=== PATIENT | female | born 1940 | race Caucasian/White ===

== ENCOUNTER 2016-07-24 04:13 | Inpatient (IN) | payer MEDICARE, OTHER ==
--- NOTE | ~2016-07-24 | CO ---
Unit #: [id number] #: [id number] Patient: BAR BRISENO [id number] [address] [place], [place] [address] [id number] I MR#: [id number] NAME: BAR BRISENO. ROOM: 577 Age: 75 Sex: F Admission Date: 07/24/2016 : 1940 Attending Physician: Josiane Loja M.D. Primary Care Physician: Te Clemente D.O. CONSULTATION REPORT HISTORY OF PRESENT ILLNESS This is a 75-year-old female, who follows with Dr. Meyer and presented after developing shortness of breath and abdominal distention when she woke up about 1:00 a.m. She felt like she could not breathe, so she went to sit in a chair, which did not really relieve her shortness of breath. She did say it was associated with nausea, but denied any chest pain. She did feel her heart racing. PAST MEDICAL HISTORY Systolic CHF; diabetes; hypertension; paroxysmal AFib; chronic kidney disease, on hemodialysis, last dialysis on Wednesday; recent right hemicolectomy. Apparently, on record review, had been on chronic anticoagulation with Coumadin prior to her hemicolectomy. Past cardiac testing includes a 2D echo in 02/2016, which showed an LVEF of 50% to 55% with LVH, zcbk-pq-rybpqkjf MR and TR, a small pericardial effusion versus fat tissue. The patient also had a cardiac catheterization in 02/2012 with bcbj-nq-vykywemh TR. EF at that time was 20% to 30%. She had a 70% to 75% stenosis of the second diagonal branch at the ostium. Past medical history also of hyperlipidemia. PAST SURGICAL HISTORY Cervical and lower back surgery, laparoscopic cholecystectomy, bilateral total knee replacements, and cataracts bilaterally. HOME MEDICATIONS Lactulose 20 g daily p.r.n. for constipation, Dulcolax 10 mg daily p.r.n. for constipation, soap enema daily p.r.n. for constipation, amiodarone 200 mg daily, Paxil 60 mg daily, lorazepam 1 mg b.i.d. p.r.n. for anxiety, Coreg 3.125 b.i.d., Timoptic 0.25% ophthalmic drop, Colace 100 mg b.i.d., Lasix 40 mg b.i.d., Lipitor 10 mg daily, latanoprost eyedrops 1 droplet b.i.d., Nephrocaps 1 capsule daily, vitamin D2 of 50,000 units weekly, Renvela 800 mg t.i.d. with meals, hydrocodone 7.5/325 tablet every 4 hours as needed for pain, Lidoderm topical daily, and Coumadin 3 mg daily. ALLERGIES Include penicillin, sulfa, acetaminophen, dextromethorphan and promethazine, IV contrast dye, phenothiazine. FAMILY HISTORY Includes hypertension and coronary artery disease. SOCIAL HISTORY Lives with her spouse and daughter. Reformed smoker. Quit at the age of Unit #: [id number] #: [id number] Patient: BAR BRISENO 40. No alcohol or illicit drug use. REVIEW OF SYSTEMS Positive for shortness of breath, abdominal distention, and positive for nausea. Also reported some racing heart rate. No chest pain. PHYSICAL EXAMINATION VITAL SIGNS: Temperature 98.5, heart rate 81, respirations 16, blood pressure 152/72, 99% on supplemental oxygen. GENERAL: She is seen in the ER, well developed, well nourished, obese female, who is alert and oriented x3. HEENT: Head is normocephalic, atraumatic. Eyes, pupils are equal and reactive to light and accommodation. Extraocular movements are intact. NECK: Supple with no lymphadenopathy. No JVD noted and no bruits. LUNGS: Have decreased breath sounds. Bilaterally, she has increased respiratory effort with use of accessory muscles for breathing. CARDIOVASCULAR: She has normal heart sounds with S1, S2 noted with S4 gallop. No murmurs appreciated. ABDOMEN: Round and obese, but soft and positive bowel sounds. No hepatojugular reflux noted. No hepatomegaly. EXTREMITIES: Trace edema with positive pedal pulses. DIAGNOSTIC STUDIES CARDIOVASCULAR STUDIES: Include an EKG, sinus rhythm with first-degree AV block with nonspecific ST and T-wave abnormalities and depression in leads V1 through V5. QTc prolonged at 495 milliseconds. IMAGING STUDIES: Chest x-ray, 07/24/2016, marked cardiomegaly, vascular congestion with new infiltrates to the mid lower lungs, which probably reflect pulmonary edema, small volume of right pleural fluid. No pneumothorax. Emphysema is noted. LABORATORY RESULTS: Include sodium 139, potassium 5.0, chloride 103, CO2 is 21, creatinine 5.4, BUN 31, glucose 314, phosphorus is 8.8, alkaline phosphatase is elevated at 102. BNP is greater than 4988. Troponin was 0.25. Lactic acid was 3.5 on admission and repeat was 1.7. INR is 1.7, PT is 18. Troponin on repeat was 0.14. WBC 14.9, hemoglobin 10.8, hematocrit 34.6, and platelet count 312. ASSESSMENT 1. Fluid overload related to chronic kidney disease. 2. Acute on chronic systolic congestive heart failure. 3. History of paroxysmal atrial fibrillation, now normal sinus rhythm. 4. Hypertension. 5. Diabetes. 6. Elevated troponin indeterminate, but possibly related to acute coronary syndrome or chronic kidney disease. 7. End-stage renal disease, on hemodialysis, Mondays, Wednesdays, and Fridays. 8. Cardiology plans to diurese per hemodialysis. Once her fluids status is more stable, we will plan to check an echo and do a right and left heart cath. We will trend her troponins and check a chest x-ray in the morning and hold her Coumadin today and tomorrow for possible right and left heart cath in the next 2 days. Dictated by... Sujata Wilkinson APRN for Manan Meyer M.D. Unit #: [id number] #: [id number] Patient: BAR BRISENO TAWNY/river TD: 07/24/2016 22:44 JOB #: [id number] CONSULTATION REPORT X X CONSULTATION REPORT
--- NOTE | ~2016-07-24 | EKG ---
PATIENT: BAR BRISENO UNIT #: [id number] Ventricular Rate: 94 BPM Atrial Rate: 94 BPM P-R Interval: 228 ms QRS Duration: 100 ms Q-T Interval: 396 ms QTC Calculation(Bezet): 495 ms P [place]: 110 degrees Calculated R [place]: 0 degrees Calculated T [place]: 78 degrees Diagnosis Line: Sinus rhythm with 1st degree A-V block Diagnosis Line: Nonspecific ST and T wave abnormality Diagnosis Line: Prolonged QT Diagnosis Line: Abnormal ECG Diagnosis Line: No previous ECGs available Diagnosis Line: Confirmed by LINDA KNIGHT MD ([id number]) on 07/24/2016 Diagnosis Line: 5:24:22 PM INTERPRETING MD: ANTONIA PELLETIER
--- NOTE | ~2016-07-24 | EKG ---
PATIENT: BAR BRISENO UNIT #: [id number] Ventricular Rate: 67 BPM Atrial Rate: 67 BPM P-R Interval: 202 ms QRS Duration: 98 ms Q-T Interval: 492 ms QTC Calculation(Bezet): 519 ms P [place]: 83 degrees Calculated R [place]: 16 degrees Calculated T [place]: 103 degrees Diagnosis Line: Normal sinus rhythm Diagnosis Line: Nonspecific T wave abnormality Diagnosis Line: Prolonged QT Diagnosis Line: Abnormal ECG Diagnosis Line: When compared with ECG of 24-JUL-2016 14:36, Diagnosis Line: Nonspecific T wave abnormality, improved in Diagnosis Line: Lateral leads Diagnosis Line: Confirmed by LINDA KNIGHT MD ([id number]) on 07/27/2016 Diagnosis Line: 7:09:55 AM INTERPRETING MD: ANTONIA PELLETIER
--- NOTE | ~2016-07-24 | CR72 ---
[facility] A Service of [facility] & [facility] RADIOLOGY TEXT RESULTS PATIENT: BAR BRISENO LOCATION: [place] [address] : [birth year] UNIT #: [id number] AGE: [address]: Josiane oLja MD SEX: F ORDER DR: [id number] [facility] [address] [place], [place] [address] [id number] I MR#: [id number] Acc #: [id number] NAME: BAR BRISENO. : 1940 SEX: F STUDY DATE/TIME: 07/24/2016 04:10 UNIT: CEDOF ROOM: 57176 STUDY DESCRIPTION: CR Chest Single View Portable Attending Physician: Josiane Loja M.D. Ordering Physician: Dipak Lewis D.O. Primary Care Physician: Te Clemente D.O. MEDICAL IMAGING REPORT This report is preliminary unless electronic signature is present EXAM Chest portable, 07/24 at 04:10 INDICATION Shortness of air for 2 weeks. History of hypertension and smoking. FINDINGS AP portable views of the chest are compared with 05/27/2016. Patient is status post cervical fusion. Bilateral upper extremity vascular stents are present. There is marked cardiomegaly. There is vascular congestion with new infiltrates in the exy-zs-vksqd lungs which probably reflect pulmonary edema. There is a small volume of right pleural fluid. No pneumothorax. IMPRESSION Emphysema and cardiomegaly. Interval development of presumed mild CHF. There is a small volume of right pleural fluid noted as well. Dictated by... Te Eisenberg Jr., M.D. THIS IS AN ELECTRONICALLY VERIFIED REPORT Te Eisenberg Jr., M.D. at 07/27/2016 7:20 AM KARISHMA/jose TD: 07/24/2016 08:31 JOB #: [id number] MEDICAL IMAGING REPORT COPY
--- NOTE | ~2016-07-24 | HP ---
Unit #: [id number] #: [id number] Patient: BAR BRISENO [id number] [address] [place], [place] [address] [id number] MR#: [id number] NAME: BAR BRISENO ROOM: [address]79 Age: 75 Sex: F Admission Date: 07/24/2016 : 1940 Attending Physician: Josiane Loja M.D. Primary Care Physician: Te Clemente D.O. HISTORY AND PHYSICAL CHIEF COMPLAINT Shortness of breath. HISTORY OF PRESENT ILLNESS This is a 75-year-old with a history of congestive heart failure and end stage renal disease on hemodialysis, admitted with the shortness of breath. According to her it started last night. She workup with shortness of breath. Last dialysis was on Wednesday. No cough. No fever. No chills. No chest pain. She received BiPAP in the ER, currently breathing better on 3 L of oxygen. No leg swelling. No abdominal pain. No nausea, vomiting, or diarrhea. PAST MEDICAL HISTORY 1. History of chronic systolic heart failure. 2. Paroxysmal atrial fibrillation on Coumadin. 3. History of ESBL UTI. 4. 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 5. Diabetes mellitus type 2, diet controlled. 6. End stage renal disease on hemodialysis Wednesday, Wednesday, and Wednesday. 7. Hypertension. 8. Hyperlipidemia. 9. Anemia of chronic disease. 10. Obesity. 11. History of tuberculosis requiring surgery. 12. B12 deficiency. 13. Degenerative joint disease. 14. Depression. 15. 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 16. History of glaucoma. 17. History of C-spine and lower spine surgery. 18. History of laparoscopic cholecystectomy. 19. History of exploratory laparotomy and right hemicolectomy in 04/2016. 20. Bilateral total knee replacement. 21. Cataract extraction bilaterally. ALLERGIES 1. Penicillin. 2. Phenothiazine. 3. Sulfa. 4. Acetaminophen. 5. Dextromethorphan. Unit #: [id number] #: [id number] Patient: SUZANNA,BAR B 6. Promethazine. 7. IV dye. CURRENT HOME MEDICATION Lactulose 20 g p.o. daily; Dulcolax 100 mg suppository daily; soap suds enema daily p.r.n.; Amiodarone 200 daily; Paxil 60 mg p.o. daily; lorazepam 1 mg p.o. b.i.d.; Coreg 3.125 p.o. b.i.d.; Timoptic eye drops daily; Colace 100 p.o. b.i.d.; Lasix 40 p.o. b.i.d.; latanoprost 1 drop b.i.d.; Lipitor 10 mg daily; Renvela 800 mg 3 times daily with meals; Nephrocaps 1 capsule daily; vitamin D 50,000 units p.o. weekly; hydrocodone 7.5 mg q.4 p.r.n. pain; Lidoderm patch 1 topically daily; Coumadin 3 mg daily. FAMILY HISTORY Positive for hypertension and coronary artery disease. SOCIAL HISTORY Lives with her . Remote history of smoking. Present currently denying smoking or alcohol. No drugs. REVIEW OF SYSTEMS No headache. No visual changes. No weakness, numbness or tingling. No skin rash. Reviewed 12 point system with her, which are negative except as in HPI. PHYSICAL EXAMINATION VITAL SIGNS: Temperature 98.2, pulse 120, respirations 32, blood pressure 104/90. GENERAL: 75-year-old lying on bed, on 3 L of oxygen, not in acute distress. Alert and oriented x3. Able to provide history. HEENT: Dry mucosa present. NECK: Supple. HEART: S1, S2 heard. Tachycardia present. No murmurs. LUNGS: Decreased breath sounds present. Occasional crackles at the basis present. ABDOMEN: Soft, obese, nontender. No hepatosplenomegaly. Bowel sounds are present. EXTREMITIES: Trace pedal edema present. NEUROLOGICAL: Moving all extremities. No focal neurological deficits. Alert and oriented x3. DIAGNOSTIC STUDIES LABORATORY DATA: ABG - pH 7.27, CO2 48, oxygen 113. Troponin is 0.05, INR 1.7, lactic acid 3.5. WBC 14.9, hemoglobin 10.8, platelets 312. Sodium 139, potassium 5.0, creatinine 5.4, CO2 21, glucose 314. BNP greater than 4,988. IMAGING STUDIES: Chest x-ray shows emphysema, interval development of mild CHF. ASSESSMENT AND PLAN 1. Acute hypoxic hypercapnic respiratory failure, most likely secondary to congestive heart failure. The patient was on BiPAP. Currently she is off BiPAP. Her ABG is 7.39, carbon dioxide 37, oxygen 109, so I am going to discontinue the BiPAP and continue the oxygen and monitor her in telemetry. 2. Sepsis, less likely: Even though her lactic acid is high, it is most likely from cardiac ischemia and end stage renal disease. Her x-ray Unit #: [id number] #: [id number] Patient: BAR BRISENO looks mostly congestion, rather than pneumonia. She did received repeat lactic acid and antibiotics x1. If pneumonia is differential, will continue the antibiotics. For now I am going to hold off on the antibiotics until her cultures. Sputum and blood cultures sent. 3. Acute on chronic systolic heart failure with fluid overload: Also form chronic kidney disease, continue with Lasix and hemodialysis. 4. Hypertension with hypertensive crisis, most likely secondary to chronic kidney disease. Continue with home medications and hemodialysis. 5. Elevated troponins: The patient is seen by cardiology. Rule out coronary artery disease. Also troponins can be secondary to chronic kidney disease. The patient does not have any chest pain. 6. End stage renal disease: Continue with hemodialysis. 7. Diabetes mellitus, type 2, diet controlled: I am going to continue the Accu-Cheks a.c. and h.s. and low dose sliding scale. 8. Recent tubulovillous adenoma with hemicolectomy: Her hemoglobin is stable, monitor. 9. Paroxysmal atrial fibrillation: The patient was on Coumadin, which has been on hold currently. She will get Lovenox as per Dr. Meyer's recommendations for elevated troponins. 10. Monitor closely in telemetry. Dictated by Tyler Castillo TD: 07/24/2016 12:12 JOB #: [id number] HISTORY AND PHYSICAL X Josiane Loja MD HISTORY AND PHYSICAL
--- NOTE | ~2016-07-24 | EKG ---
PATIENT: BAR BRISENO UNIT #: [id number] Ventricular Rate: 80 BPM Atrial Rate: 80 BPM P-R Interval: 208 ms QRS Duration: 100 ms Q-T Interval: 464 ms QTC Calculation(Bezet): 535 ms P [place]: 58 degrees Calculated R [place]: 2 degrees Calculated T [place]: 48 degrees Diagnosis Line: Normal sinus rhythm Diagnosis Line: T wave abnormality, consider anterior ischemia Diagnosis Line: Prolonged QT Diagnosis Line: Abnormal ECG Diagnosis Line: When compared with ECG of 24-JUL-2016 04:57, Diagnosis Line: (unconfirmed) Diagnosis Line: No significant change was found Diagnosis Line: Confirmed by LINDA KNIGHT MD ([id number]) on 07/24/2016 Diagnosis Line: 5:34:08 PM INTERPRETING MD: ANTONIA PELLETIER
--- NOTE | ~2016-07-24 | DS ---
Unit #: [id number] #: [id number] Patient: BAR BRISENO [id number] [address] [address] [id number] I MR#: [id number] NAME: BAR BRISENO. ROOM: 577 Age: 75 Sex: F Admission Date: 07/24/2016 : 1940 Discharge Date: 07/27/2016 Attending Physician: Bar Gordillo M.D. Primary Care Physician: Te Clemente D.O. DISCHARGE SUMMARY PRINCIPAL DIAGNOSES 1. Acute pulmonary edema, multifactorial including acute exacerbation of systolic congestive heart failure with an ejection fraction of 20% to 30% with end-stage renal disease. 2. End-stage renal disease maintained on hemodialysis Wednesday, Wednesday, Wednesday and followed by Dr. Cordova. 3. Acute hypoxic hypercapnic respiratory failure secondary to pulmonary edema, now resolved. 4. Extended-spectrum beta-lactamase producing Escherichia coli urinary tract infection. 5. Severe mitral regurgitation. 6. Elevated troponin secondary to demand ischemia. 7. Paroxysmal atrial fibrillation, maintained on anticoagulation. Currently in normal sinus rhythm. 8. Chronic left foot diabetic wound, followed by Dr. Rashid as an outpatient. 9. Diabetes mellitus type 2, diet controlled. 10. Hypertension. 11. Hyperlipidemia. 12. Anemia of chronic kidney disease. 13. Obesity. 14. Depression. 15. Cataracts. 16. Moderate pulmonary hypertension. CONSULTANTS 1. Dr. Meyer, cardiology. 2. Dr. Cordova, nephrology. 3. Dr. Riojas, general surgery. PROCEDURES 1. Jwbzu-lax-aqsd-sided heart catheterization on July 27, 2016 with an ejection fraction of 20% to 30%, 4+ mitral regurgitation noted with markedly dilated left atrium. Moderate pulmonary hypertension with a right ventricular systolic pressure of 57 mmHg. Left main, left circumflex, right coronary all normal. LAD was normal. First diagonal has 60% stenosis. 2. Chest x-ray on July 24, 2016 with emphysema and cardiomegaly. CHF changes noted. 3. Chest x-ray on July 24, 2016 with marked improvement in that chest x-ray. CLINICAL HISTORY AND HOSPITAL COURSE Unit #: [id number] #: [id number] Patient: BAR BRISENO Ms. is a nice 75-year-old female who presents to the emergency department with increasing shortness of breath. Please refer to H and P for further details. Chest x-ray done in the emergency department was concerning for pulmonary edema. However, patient had recently been hospitalized under concerns initially that perhaps she has underlying associated pneumonia. She was given broad-spectrum antibiotics in the emergency department. She was also found to be hypoxic in the emergency department. White blood cell count was elevated upon presentation at 14.9. Patient was subsequently admitted. Patient again was admitted, maintained on oxygen and antibiotics were discontinued given clinically symptoms and signs seem more consistent with congestive heart failure. Dr. Cordova was consulted and patient underwent hemodialysis with removal of a large amount of fluid and patient had resolution of her dyspnea. The plan is to increase the patient's dry weight on hemodialysis as an outpatient. Her associated respiratory failure has resolved. She has not had any fever and her leukocytosis has resolved. No further antibiotic therapy in regard to pneumonia. Dr. Meyer was consulted given patient had an elevated troponin of 0.25 upon presentation and peaked at 0.28 later that day. However, she never had any chest pain. She does have known significant mitral regurgitation which is a contributing factor to her pulmonary edema; given her multiple risk factors however she underwent heart catheterization which ruled out any significant coronary disease requiring intervention. We are going to increase afterload reduction with medication. She will follow up with Dr. Meyer as an outpatient given she may require further surgical intervention on her mitral valve. I will note she also had paroxysmal atrial fibrillation and is currently maintained in normal sinus rhythm; will reinitiate Coumadin therapy with a goal INR of 2 to 3. Only other significant finding was a positive urine culture with ESBL producing E. coli in the urine. Mitchells count was low at 20,000 to 30,000 and this is asymptomatic but given the virulent strain I am going to treat with Merrem as an outpatient. However in the future if she continues to have this same bacteria in the urine without symptoms I may consider colonization in the future. Dr. Riojas's was consulted given patient was concerned about her underlying left foot wound which has not been followed up at [facility] given her hospitalization. The plan is to continue wound care as she was doing at home previously. DISCHARGE CONDITION Stable. DISCHARGE STATUS Discharge to home. DISCHARGE MEDICATIONS 1. Lactulose 20 g p.o. daily p.r.n. for constipation. 2. Amiodarone 200 mg daily. 3. Coumadin 3 mg p.o. daily with a goal INR of 2 to 3. 4. Paxil 60 mg daily. 5. Lidoderm 5% patch one daily for 12 hours and then to remove. 6. Ativan 1 mg p.o. b.i.d. p.r.n. for anxiety. 7. Coreg 6.25 mg p.o. b.i.d. Two refills given. 8. Dulcolax suppository 10 mg per rectum daily p.r.n. for constipation. Unit #: [id number] #: [id number] Patient: BAR BRISENO 9. Colace 100 mg b.i.d. 10. Lasix 40 mg b.i.d. 11. Latanoprost eye drops one drop to both eyes b.i.d. 12. Lipitor 10 mg daily. 13. Lisinopril 20 mg q.h.s. 14. Renagel 800 mg p.o. t.i.d. with meals. 15. Anexsia 7.5/325 mg one p.o. q.4 h. p.r.n. for pain. 16. Imdur ER 60 mg daily. 17. Nephrocaps one daily. 18. Vitamin D 50,000 units weekly. 19. Timoptic 0.25% drops to both eyes daily. 20. Merrem 500 mg IV q.24 h. to stop after dose given on August 01, 2016. DISCHARGE INSTRUCTIONS 1. The patient was instructed to follow a heart-healthy low-salt diet. 2. She can increase her activity as tolerated. 3. She will continue wound packing as she was doing at home previously in regard to her foot wound. 4. She will continue hemodialysis Wednesday, Wednesday, Wednesday. FOLLOWUP 1. Patient will follow up with Dr. Meyer as instructed and will have perhaps outpatient evaluation for mitral valve intervention. 2. She needs a followup INR done on July 30, 2016, again with goal INR of 2 to 3. 3. She should have discontinuation of midline upon completion of antibiotics. Time spent on discharge 36 minutes. Dictated by... Bar Gordillo M.D. KEH/carey TD: 07/27/2016 15:02 JOB #: [id number] DISCHARGE SUMMARY X Bar Gordillo MD X DISCHARGE SUMMARY
--- NOTE | ~2016-07-24 | CO ---
Unit #: [id number] #: [id number] Patient: ERIKA BRISENO [id number] [address] [place], [place] [address] [id number] MR#: [id number] NAME: ERIKA BRISENO. ROOM: 577 Age: 75 Sex: F Admission Date: 07/24/2016 : 1940 Attending Physician: Erika Gordillo M.D. Primary Care Physician: Te Clemente D.O. Consultation Date: 07/27/2016 CONSULTATION REPORT BRIEF HISTORY The patient is a 75-year-old lady, who presents with congestive heart failure as well as end-stage renal disease, on dialysis, who is being followed by Dr. Rashid in wound care for a left foot diabetic ulcer. She saw him last week, has been undergoing Betadine wet-to-dry dressings on a b.i.d. basis, and was due to follow up this week. I am asked to evaluate the status of the wound. PAST MEDICAL HISTORY Chronic renal failure; atrial fib, on Coumadin; diabetes; hypertension; hyperlipidemia. PAST SURGICAL HISTORY She has had a right hemicolectomy and bilateral knee replacements. MEDICATIONS Lactulose, Dulcolax, amiodarone, Paxil, lorazepam, Coreg, Nephrocaps, Coumadin 3 mg daily. FAMILY HISTORY Negative for GI malignancy. SOCIAL HISTORY No smoking. No alcohol. REVIEW OF SYSTEMS No cardiopulmonary complaints at this time. Else, 10 systems reviewed and negative. PHYSICAL EXAMINATION GENERAL: She is awake, alert, appropriate, currently afebrile. HEENT: Unremarkable. NECK: Supple. No JVD. Trachea midline. LUNGS: Clear to auscultation. Bilateral breath sounds symmetric. CARDIOVASCULAR: Regular rate and rhythm. ABDOMEN: Soft, nontender, and nondistended. I palpate no masses. No hepatosplenomegaly. EXTREMITIES: Shows a 0.5 cm diameter ulcer down to the fibrinous connective tissue in the left lateral portion of the distal metatarsal. This is clean without cellulitis. No necrosis. ASSESSMENT Clean diabetic wound. Unit #: [id number] #: [id number] Patient: ERIKA BRISENO PLAN Recommend continued local wound care with dressing changes. No plans for debridement. Will follow up with Dr. Rashid in [facility] in 1 week. Dictated by... Tyler Ruff/river TD: 07/28/2016 01:52 JOB #: [id number] CONSULTATION REPORT X Artemio Riojas MD X CONSULTATION REPORT
--- NOTE | ~2016-07-24 | CR63 ---
[facility] A Service of [facility] RADIOLOGY TEXT RESULTS PATIENT: BAR BRISENO LOCATION: [place] [address] : 40 UNIT #: [id number] AGE: [address]: Josiane Loja MD SEX: F ORDER DR: [id number] [facility] [address] [facility]. [place], [place] [address] [id number] MR#: [id number] Acc #: [id number] NAME: BAR BRISENO : 1940 SEX: F STUDY DATE/TIME: 07/24/2016 11:51 UNIT: [facility] ROOM: [address] STUDY DESCRIPTION: CR Chest 2 View Attending Physician: Josiane Loja M.D. Ordering Physician: Josiane Loja M.D. Primary Care Physician: Te Clemente D.O. MEDICAL IMAGING REPORT This report is preliminary unless electronic signature is present EXAM Chest 2 views, 07/24/2016 at 11:51 hours HISTORY Shortness of air for 2 weeks. History of CHF and renal failure. Dialysis patient. COMPARISON 07/24/2016 at 04:10 hours FINDINGS Portable upright chest demonstrates stable cardiomegaly and a tortuous aorta. There is resolution of bilateral vascular distension and near complete resolution of the interstitial changes. There may be a small residual right effusion. Vascular stents are noted in both the right and left axilla. IMPRESSION Marked improvement from 04:10 hours today. The bilateral interstitial changes have resolved. There is no residual pulmonary venous distension. There is minimal blunting of the right costophrenic sulcus, likely a small residual right effusion. Dictated by... Jauna Downing M.D. THIS IS AN ELECTRONICALLY VERIFIED REPORT Juana Downing M.D. at 07/24/2016 8:40 PM Marv TD: 07/24/2016 14:54 JOB #: [id number] [facility] A Service [facility] RADIOLOGY TEXT RESULTS PATIENT: BAR BRISENO [facility] [address] [facility] [id number] : 40 UNIT #: [id number] AGE: [address]: Josiane Loja MD SEX: F ORDER DR: MEDICAL IMAGING REPORT COPY
[2016-07-24 04:00] LABS: ARTERIAL BLD GAS O2 SATURATION 96.1 % (90.0-100.0); ARTERIAL BLOOD GAS HCO3 22.4 mmol/L; ARTERIAL BLOOD GAS MET HB 1.2 %sat (0.0-2.0); ARTERIAL BLOOD GAS PCO2 48.6 mmHg (35.0-45.0); ARTERIAL BLOOD GAS pH 7.273 (7.350-7.450)
[2016-07-24 04:01] LABS: ARTERIAL BLOOD GAS ALLEN TEST NORMAL; ARTERIAL BLOOD GAS ART SITE LEFT RADIAL; ARTERIAL BLOOD GAS DELIVERY NASAL CANNULA; ARTERIAL DRAW? YES
[~2016-07-24 04:13] MED LIST: ALBUTEROL17 GM INH; ALPHAGAN P10 ML OP; ALPHAGAN P10 ML OU; AMIODARONE HCL100 MG PO; ARANESP100 MCG/0. SUBQ; ASPIRIN81 MG PO; ATIVAN PO; ATIVAN0.5 MG PO; AVANDIA PO; BRIMONIDINE OU; BUMEX1 MG PO; CIPRO PO; COLACE PO; COREG12.5 MG PO; COUMADIN5 MG PO; CYMBALTA PO; DORZOLAMIDE-TIM10 ML OP; DSS100 MG PO; FAMOTIDINE PO; FLEXERIL PO; FOLIC ACID PO; FUROSEMIDE40 MG PO; GENTLE LAXATIVE10 MG RC; GLUCOPHAGE XR500 MG PO; GLUCOTROL PO; HUMULIN R100 U/ML SUBQ; HYDRALAZINE HCL25 MG PO; HYDRALAZINE HCL50 MG PO; KCL PO; KEPPRA250 MG PO; LASIX PO; LATANOPROST2.5 ML OU; LEVAQUIN PO; LEVAQUIN750 MG PO; LIPITOR PO; LISINOPRIL10 MG PO; LO-DOSE ASPIRIN81 M1 PO; LODIPINE PO; LOPID600 MG PO; LORAZEPAM1 MG PO; LUMIGAN; LUMIGAN2.5 ML OP; LUMIGAN2.5 ML OU; METFORMIN PO; MIRALAX255 GM PO; MOBIC PO; MONODOX100 MG PO; MULTI-VITAMIN1 EAC1 PO; NEPHROCAPS1 CAP PO; NORVASC PO; NOVOLOG7030; PAROXETINE HCL20 MG PO; PAXIL PO; PEPCID PO; PHOSLO667 MG PO; PREDNISONE PO; RENAGEL800 MG PO; RENAL SOFTGEL1 MG PO; RENVELA800 MG; RENVELA800 MG PO; SOD BICARBONATE PO; SODIUM BICARBO650 MG PO; TIMOLOL OU; TIMOPTIC2.5 ML OP; TIMOPTIC2.5 ML OU; TYLENOL #3 PO; TYLENOL PO; VANCOMYCIN HCL1 GM; VICODIN 5/500 T1 TAB PO; VITAMIN D 4001 UDTAB PO; VITAMIN D50000 UNIT PO; WOMENS STOOL S100 MG PO; ZEMPLAR1 MCG PO; ZESTORETIC 10/11 TAB PO; ZESTORETIC 20/21 TAB PO; ZITHROMAX PO; ZOCOR PO; ZYVOX PO; [UNRECOGNIZED DRUG - CODE]; [UNRECOGNIZED DRUG - OTHER]; [UNRECOGNIZED DRUG - OTHER] PO
[2016-07-24 04:31] LABS: BASOPHIL# 0.1 X10e3 (0-0.3); BASOPHIL% 0.6 % (0-2.5); EOSINOPHIL# 0.2 X10e3 (0-0.7); EOSINOPHIL% 1.5 % (0.0-7.0); HEMATOCRIT 34.6 % (35.0-45.0); HEMOGLOBIN 10.8 gm/dL (12.0-16.0); LYMPHOCYTE# 2.1 X10e3 (1.0-3.5); LYMPHOCYTE% 14.3 % (17.0-45.0); MEAN CELL VOLUME 97.4 FL (83-96); MEAN CORPUSCULAR HEMOGLOBIN 30.5 PG (28-34); MEAN CORPUSCULAR HGB CONC 31.3 g/dL (30-36); MEAN PLATELET VOLUME 8.2 FL (6.5-11.5); MONOCYTE# 0.8 X10e3 (0-1.0); MONOCYTE% 5.4 % (3.0-12.0); NEUTROPHIL# 11.6 X10e3 (1.5-7.1); NEUTROPHIL% 78.2 % (40-75); PLATELET COUNT 312 X10e3 (140-420); RED BLOOD COUNT 3.55 X10e (3.90-5.30); RED CELL DISTRIBUTION WIDTH 22.2 % (11.0-15.5); WHITE BLOOD COUNT 14.9 X10e3 (4.0-10.5)
[2016-07-24 04:38] LABS: DIFF IND YES
[2016-07-24 04:38] LABS: POC - CKMB 2.8 ng/mL (0.0-7.9); POC - TROPONIN <0.05 ng/mL (<=0.05)
[2016-07-24 04:44] LABS: INR 1.7
[2016-07-24 04:51] LABS: PLATELET ESTIMATE NORMAL (NORMAL)
[2016-07-24 04:52] LABS: ANISOCYTOSIS MOD; POIKILOCYTOSIS SL
[2016-07-24 04:56] LABS: ALBUMIN SERUM 3.7 g/dL (3.5-5.0); BILIRUBIN, DIRECT 0.1 mg/dL (0.0-0.2); BILIRUBIN,INDIRECT 0.5 mg/dL (0.0-0.9); BILIRUBIN,TOTAL 0.6 mg/dL (0.2-2.0); BUN/CREATININE RATIO 5.74; CALCIUM SERUM 8.6 mg/dL (8.4-10.2); CREATININE SERUM 5.4 mg/dL (0.6-1.4); GLOM FILT RATE Estimated 8.2 mL/min (>60); PROTEIN TOTAL SERUM 7.4 g/dL (6.0-8.3)
[2016-07-24] MEDS ORDERED: KRISTALOSE20 G/PK1 PO (05:48)
[2016-07-24] MEDS ORDERED: DULCOLAX10 MG/SUPP PR (05:49)
[2016-07-24] MEDS ORDERED: SOAP SUD ENEMA (05:50)
[2016-07-24] MEDS ORDERED: PACERONE PO (05:51)
[2016-07-24] MEDS ORDERED: PAXIL30 MG PO (05:52)
[2016-07-24] MEDS ORDERED: COREG3.125 M1 PO (05:53)
[2016-07-24] MEDS ORDERED: LORAZEPAM1 MG PO (05:53)
[2016-07-24] MEDS ORDERED: LASIX PO (05:54)
[2016-07-24] MEDS ORDERED: TIMOPTIC 0.25%1 EACH (05:54)
[2016-07-24] MEDS ORDERED: DOCUSATE SODIU100 MG PO (05:54)
[2016-07-24] MEDS ORDERED: LATANOPROST2.5 ML OU (05:55)
[2016-07-24] MEDS ORDERED: LIPITOR20 MG PO (05:55)
[2016-07-24] MEDS ORDERED: RENVELA800 MG PO (05:58)
[2016-07-24] MEDS ORDERED: VITAMIN D250000 UNIT PO (05:59)
[2016-07-24] MEDS ORDERED: NEPHROCAPS1 CAP PO (05:59)
[2016-07-24] MEDS ORDERED: ANEXSIA 7.5/3251 TA1 PO (06:00)
[2016-07-24] MEDS ORDERED: LIDODERM30 EA TOP (06:01)
[2016-07-24] MEDS ORDERED: COUMADIN3 MG PO (06:01)
[2016-07-24 08:44] LABS: POC - CKMB 3.8 ng/mL (0.0-7.9); POC - TROPONIN 0.14 ng/mL (<=0.05)
[2016-07-24 08:59] LABS: CK TOTAL 29 IU/L (26-140)
[2016-07-24 09:51] LABS: ARTERIAL BLD GAS O2 SATURATION 97.2 % (90.0-100.0); ARTERIAL BLOOD GAS CARBOXY HB 0.9 %sat (0.0-9.0); ARTERIAL BLOOD GAS HCO3 22.8 mmol/L; ARTERIAL BLOOD GAS MET HB 0.7 %sat (0.0-2.0); ARTERIAL BLOOD GAS PCO2 37.6 mmHg (35.0-45.0); ARTERIAL BLOOD GAS pH 7.391 (7.350-7.450)
[2016-07-24 09:53] LABS: ARTERIAL BLOOD GAS ALLEN TEST NORMAL; ARTERIAL BLOOD GAS ART SITE LEFT RADIAL; ARTERIAL BLOOD GAS DELIVERY NASAL CANNULA; ARTERIAL DRAW? YES
[2016-07-24 12:37] LABS: URINE SOURCE CLEAN CATCH
[2016-07-24 12:57] LABS: CULTURE INDICATED? YES; URINE APPEARANCE CLOUDY; URINE BACTERIA AUWI 4+ (NEGATIVE); URINE BILIRUBIN NEG (NEG); URINE BLOOD TRACE (NEG); URINE COLOR YELLOW; URINE GLUCOSE NEG (NEG); URINE KETONE NEG (NEG); URINE LEUKOCYTE ESTERASE 3+ (NEG); URINE NITRATE POS (NEG); URINE PH 7.5 (5-8); URINE PROTEIN 1+ (NEG); URINE SQUAMOUS EPITHELIAL CELL OCC /[HPF]; URINE UROBILINOGEN 0.2 MG/DL (NEG); UWBCS1 AUWI 100-200 (0-5)
[2016-07-24 13:25] LABS: BASOPHIL% 0.1 % (0-2.5); HEMATOCRIT 32.3 % (35.0-45.0); HEMOGLOBIN 10.1 gm/dL (12.0-16.0); LYMPHOCYTE# 0.2 X10e3 (1.0-3.5); LYMPHOCYTE% 2.5 % (17.0-45.0); MEAN CELL VOLUME 96.4 FL (83-96); MEAN CORPUSCULAR HEMOGLOBIN 30.1 PG (28-34); MEAN CORPUSCULAR HGB CONC 31.2 g/dL (30-36); MEAN PLATELET VOLUME 7.8 FL (6.5-11.5); MONOCYTE% 0.5 % (3.0-12.0); NEUTROPHIL# 9.2 X10e3 (1.5-7.1); NEUTROPHIL% 96.9 % (40-75); PLATELET COUNT 206 X10e3 (140-420); RED BLOOD COUNT 3.35 X10e (3.90-5.30); WHITE BLOOD COUNT 9.5 X10e3 (4.0-10.5)
[2016-07-24 13:26] LABS: DIFF IND NO
[2016-07-24 14:04] LABS: ALBUMIN SERUM 3.5 g/dL (3.5-5.0); BILIRUBIN,TOTAL 0.8 mg/dL (0.2-2.0); CALCIUM SERUM 8.4 mg/dL (8.4-10.2); GLOM FILT RATE Estimated 7.3 mL/min (>60); MAGNESIUM 2.1 mg/dL (1.6-3.0); PHOSPHOROUS 4.2 mg/dL (2.5-4.6); POTASSIUM 5.3 mmol/L (3.5-5.1); PROTEIN TOTAL SERUM 7.1 g/dL (6.0-8.3)
[2016-07-24 21:24] LABS: CK TOTAL 27 IU/L (26-140)
[2016-07-25 08:27] LABS: BASOPHIL# 0.1 X10e3 (0-0.3); BASOPHIL% 0.4 % (0-2.5); HEMATOCRIT 32.8 % (35.0-45.0); HEMOGLOBIN 10.2 gm/dL (12.0-16.0); LYMPHOCYTE# 0.9 X10e3 (1.0-3.5); LYMPHOCYTE% 6.3 % (17.0-45.0); MEAN CELL VOLUME 96.3 FL (83-96); MEAN CORPUSCULAR HEMOGLOBIN 30.1 PG (28-34); MEAN CORPUSCULAR HGB CONC 31.2 g/dL (30-36); MEAN PLATELET VOLUME 8.1 FL (6.5-11.5); MONOCYTE# 0.9 X10e3 (0-1.0); MONOCYTE% 6.3 % (3.0-12.0); NEUTROPHIL# 12.5 X10e3 (1.5-7.1); PLATELET COUNT 208 X10e3 (140-420); RED CELL DISTRIBUTION WIDTH 22.2 % (11.0-15.5)
[2016-07-25 08:28] LABS: DIFF IND NO; WHITE BLOOD COUNT 14.4 X10e3 (4.0-10.5)
[2016-07-25 09:02] LABS: ALBUMIN SERUM 3.7 g/dL (3.5-5.0); BILIRUBIN,TOTAL 0.7 mg/dL (0.2-2.0); BUN/CREATININE RATIO 5.12; CALCIUM SERUM 8.8 mg/dL (8.4-10.2); CREATININE SERUM 4.1 mg/dL (0.6-1.4); GLOM FILT RATE Estimated 11.3 mL/min (>60); MAGNESIUM 2.1 mg/dL (1.6-3.0); PHOSPHOROUS 4.3 mg/dL (2.5-4.6); POTASSIUM 4.2 mmol/L (3.5-5.1); PROTEIN TOTAL SERUM 6.8 g/dL (6.0-8.3)
[2016-07-26 06:52] LABS: INR 1.5; PROTHROMBIN TIME (PATIENT) 15.5 SECONDS (9.6-11.5)
[2016-07-26 07:03] LABS: BUN/CREATININE RATIO 8.21; CALCIUM SERUM 8.1 mg/dL (8.4-10.2); CREATININE SERUM 5.6 mg/dL (0.6-1.4); GLOM FILT RATE Estimated 7.9 mL/min (>60); MAGNESIUM 2.2 mg/dL (1.6-3.0); POTASSIUM 4.6 mmol/L (3.5-5.1)
[2016-07-26 07:42] LABS: HEMATOCRIT 30.3 % (35.0-45.0); HEMOGLOBIN 9.5 gm/dL (12.0-16.0); MEAN CELL VOLUME 95.1 FL (83-96); MEAN CORPUSCULAR HEMOGLOBIN 29.7 PG (28-34); MEAN CORPUSCULAR HGB CONC 31.3 g/dL (30-36); MEAN PLATELET VOLUME 7.4 FL (6.5-11.5); RED BLOOD COUNT 3.19 X10e (3.90-5.30); RED CELL DISTRIBUTION WIDTH 21.7 % (11.0-15.5); WHITE BLOOD COUNT 11.5 X10e3 (4.0-10.5)
[2016-07-27 09:00] LABS: HEMATOCRIT 29.2 % (35.0-45.0); HEMOGLOBIN 9.3 gm/dL (12.0-16.0); MEAN CELL VOLUME 95.7 FL (83-96); MEAN CORPUSCULAR HEMOGLOBIN 30.4 PG (28-34); MEAN CORPUSCULAR HGB CONC 31.8 g/dL (30-36); MEAN PLATELET VOLUME 8.4 FL (6.5-11.5); RED BLOOD COUNT 3.06 X10e (3.90-5.30); RED CELL DISTRIBUTION WIDTH 21.9 % (11.0-15.5); WHITE BLOOD COUNT 8.7 X10e3 (4.0-10.5)
[2016-07-27 09:24] LABS: ALBUMIN SERUM 3.2 g/dL (3.5-5.0); BILIRUBIN,TOTAL 0.7 mg/dL (0.2-2.0); BUN/CREATININE RATIO 9.02; CALCIUM SERUM 8.1 mg/dL (8.4-10.2); CREATININE SERUM 7.2 mg/dL (0.6-1.4); GLOM FILT RATE Estimated 5.9 mL/min (>60); MAGNESIUM 2.2 mg/dL (1.6-3.0); PHOSPHOROUS 4.9 mg/dL (2.5-4.6); POTASSIUM 5.1 mmol/L (3.5-5.1); PROTEIN TOTAL SERUM 6.2 g/dL (6.0-8.3)
[2016-07-27 09:35] LABS: INR 1.4; PARTIAL THROMBOPLASTIN TIME 30.8 SECONDS (23.5-31.3); PROTHROMBIN TIME (PATIENT) 15.4 SECONDS (9.6-11.5)
[2016-07-27] MEDS ORDERED: COREG6.25 MG PO (18:58)
[2016-07-27] MEDS ORDERED: LISINOPRIL20 MG PO (19:02)
[2016-07-27] MEDS ORDERED: IMDUR-ER60 M1 PO (19:03)
[2016-07-27] MEDS ORDERED: MEROPENEM500 M1 IV (19:07)
== END 2016-07-27 21:11 | disposition home health service (06) | DRG 286 ==
LOC: CED 04:13 → CEDOF 06:15 → C5C 16:44
PROVIDERS: Emergency Medicine; Internal Medicine; Internal Medicine Cardiovascular Disease; Internal Medicine Nephrology
PROC: 5A1D60Z (ICD-10-PCS; 2016-07-24)
PROC: 05HA33Z Insertion of Infusion Device into Left Brachial Vein, Percutaneous Approach (ICD-10-PCS; principal; 2016-07-27)
PROC: 4A023N8 Measurement of Cardiac Sampling and Pressure, Bilateral, Percutaneous Approach (ICD-10-PCS; 2016-07-27)
PROC: B215YZZ Fluoroscopy of Left Heart using Other Contrast (ICD-10-PCS; 2016-07-27)
PROC: B211YZZ Fluoroscopy of Multiple Coronary Arteries using Other Contrast (ICD-10-PCS; 2016-07-27)
DX: I50.23 Acute on chronic systolic (congestive) heart failure (principal); N18.6 End stage renal disease; J96.01 Acute respiratory failure with hypoxia; I12.0 Hypertensive chronic kidney disease with stage 5 chronic kidney disease or end stage renal disease; J96.02 Acute respiratory failure with hypercapnia; J81.1 Chronic pulmonary edema; I27.2 Other secondary pulmonary hypertension; N39.0 Urinary tract infection, site not specified; I16.9 Hypertensive crisis, unspecified; E11.22 Type 2 diabetes mellitus with diabetic chronic kidney disease; B96.20 Unspecified Escherichia coli [E. coli] as the cause of diseases classified elsewhere; Z16.12 Extended spectrum beta lactamase (ESBL) resistance; I34.0 Nonrheumatic mitral (valve) insufficiency; I48.0 Paroxysmal atrial fibrillation; I10 Essential (primary) hypertension; E78.5 Hyperlipidemia, unspecified; D63.1 Anemia in chronic kidney disease; E11.9 Type 2 diabetes mellitus without complications; E66.9 Obesity, unspecified; F32.9 Major depressive disorder, single episode, unspecified; Z79.01 Long term (current) use of anticoagulants; Z88.8 Allergy status to other drugs, medicaments and biological substances; Z88.1 Allergy status to other antibiotic agents; Z88.2 Allergy status to sulfonamides; Z88.6 Allergy status to analgesic agent; Z91.041 Radiographic dye allergy status; E87.70 Fluid overload, unspecified; Z86.11 Personal history of tuberculosis; Z86.14 Personal history of Methicillin resistant Staphylococcus aureus infection; Z96.653 Presence of artificial knee joint, bilateral; Z98.42 Cataract extraction status, left eye; Z98.41 Cataract extraction status, right eye
CPT/HCPCS: 36415; 36600; 71010; 71020; 80048; 80053; 80076; 80200; 80202; 81003; 82550; 82553; 82803; 82810; 82947; 83605; 83735; 83880; 84100; 84484; 85025; 85027; 85610; 85730; 87040; 87086; 87088; 87186; 90945; 93005; 94640; 94660; 94760; 96365; 96368; 96375; 97162; 97166; 97530; 99291; C1769; C1887; C1894; G8978-GP; G8979-GP; G8987-GO; G8988-GO; J1200; J1644; J1650; J1815; J2185; J2250; J2930; J3010; J3260; J3370

== ENCOUNTER → 2016-07-29 | Outpatient (CLI) | payer MEDICARE, OTHER ==
[~2016-07-29] MED LIST changes: +AMIODARONE PO; +ANEXSIA 7.5/3251 TA1 PO; +COREG3.125 M1 PO; +COREG6.25 MG PO; +COUMADIN PO; +COUMADIN3 MG PO; +COUMADIN6 MG PO; +DOCUSATE SODIU100 MG PO; +DULCOLAX10 MG/SUPP PR; +IMDUR-ER60 M1 PO; +KRISTALOSE20 G/PK1 PO; +LEVOTHYROXINE50 MC1 PO; +LIDODERM30 EA TOP; +LIPITOR20 MG PO; +LISINOPRIL20 MG PO; +LUMIGAN2.5 ML; +MEROPENEM500 M1 IV; +PACERONE PO; +PAXIL30 MG PO; +SOAP SUD ENEMA; +SYNTHROID25 MCG PO; +TIMOPTIC 0.25% O5 M1 OU; +TIMOPTIC 0.25%1 EACH; +VITAMIN D250000 UNIT PO
--- NOTE | ~2016-07-29 | XA77 ---
[facility] A Service of [facility] & [facility] RADIOLOGY TEXT RESULTS PATIENT: BAR BRISENO LOCATION: [facility] : 40 UNIT #: [id number] AGE: [address]: Bar Gordillo MD SEX: F ORDER DR: [id number] [facility] [address] [facility] [place], [place] [address] [id number] O MR#: [id number] Acc #: [id number] NAME: BAR BRISENO : 1940 SEX: F STUDY DATE/TIME: 07/29/2016 15:23 [facility] STUDY DESCRIPTION: XA CVC Port Devive Check Attending Physician: Bar Gordillo M.D. Referring Physician: Bar Gordillo M.D. Ordering Physician: Bar Gordillo M.D. Primary Care Physician: Te Clemente D.O. MEDICAL IMAGING REPORT This report is preliminary unless electronic signature is present EXAM Venous device check HISTORY Patient has a midline catheter that is not functioning. Question of deep to replace the catheter with a PICC. TECHNIQUE The patient's existing midline catheter dressing was removed. It was noted that the catheter was kinked at the hub. Once this was relieved, the midline catheter injected and aspirated easily. Ultrasound examination of the arm was performed and the midline was then, basically, the patient's only adequate vein in that extremity. Because of this, it was elected not to place a PICC. We pulled the midline back approximately 1 cm and redirected the port hub so that it stays above the elbow. I feel that the kinking occurred because the port was crossing the elbow and it kinked with patient's use of the arm. Total fluoroscopy time 0.4 minutes with a total dose of 2 mGy. IMPRESSION The port catheter was kinked at the hub. It worked well once the kink was relieved. The catheter was redirected laterally and a new dressing was applied such that the patient could use the elbow without kinking the catheter. Dictated by... Te Corbin M.D. THIS IS AN ELECTRONICALLY VERIFIED REPORT Te Corbin M.D. at 07/30/2016 8:39 AM RLF/maite [facility] A Service of [facility] & [facility] RADIOLOGY TEXT RESULTS PATIENT: BAR BRISENO LOCATION: [facility] #: [id number] : 40 UNIT #: [id number] AGE: [address]: Bar Gordillo MD SEX: F ORDER DR: TD: 07/29/2016 21:03 JOB #: [id number] MEDICAL IMAGING REPORT COPY
== END | disposition home or self-care (01) ==
LOC: CIVR 15:03
DX: T82.898A Other specified complication of vascular prosthetic devices, implants and grafts, initial encounter (principal)

== ENCOUNTER 2016-08-02 16:56 | Emergency (ER) | payer MEDICARE, OTHER ==
[~2016-08-02 16:56] MED LIST changes: -AMIODARONE PO; -COUMADIN PO; -COUMADIN6 MG PO; -LEVOTHYROXINE50 MC1 PO; -LUMIGAN2.5 ML; -SYNTHROID25 MCG PO; -TIMOPTIC 0.25% O5 M1 OU
== END 2016-08-02 18:21 | disposition home or self-care (01) ==
LOC: SED 16:56
DX: Z45.2 Encounter for adjustment and management of vascular access device (principal); L97.529 Non-pressure chronic ulcer of other part of left foot with unspecified severity; I10 Essential (primary) hypertension; E11.9 Type 2 diabetes mellitus without complications; Z88.0 Allergy status to penicillin; Z88.2 Allergy status to sulfonamides; Z91.041 Radiographic dye allergy status; Z88.8 Allergy status to other drugs, medicaments and biological substances
CPT/HCPCS: 99283

== ENCOUNTER 2016-10-07 14:36 | Inpatient (IN) | payer MEDICARE, OTHER ==
--- NOTE | ~2016-10-07 | HP ---
Unit #: [id number] #: [id number] Patient: BAR BRISENO [id number] [address] [place], [place] [address] [id number] E MR#: [id number] NAME: BAR BRISENO. ROOM: Age: 76 Sex: F Admission Date: 10/07/2016 : 1940 Attending Physician: Damián Knapp M.D. Primary Care Physician: Te Clemente D.O. HISTORY AND PHYSICAL CHIEF COMPLAINT Low blood pressure. HISTORY OF PRESENT ILLNESS The patient is a 76-year-old female with past medical history of end-stage renal disease on dialysis, chronic anemia, CHF, severe mitral regurgitation, paroxysmal atrial fibrillation, chronic anticoagulation with Coumadin, diabetes, hyperlipidemia, pulmonary hypertension, hypertension, left foot wound, who presented to the emergency department for evaluation of the above. The patient states that she was in her usual state of health when she went to dialysis and her blood pressure was noted to be low. Blood pressure was 80s systolic. She had dialysis. She then went home and took all of her blood pressure medications. She was then in the car with another family member driving to an appointment. She states that she felt somewhat lightheaded and dizzy. She was brought to the emergency department for further evaluation. She denies any chest pain, no difficulty breathing, no fever, no cough or cold symptoms. She no longer makes urine. She had part of her foot amputated at [facility] in July 2016. She states that the wound has been healing well. In the emergency department, temperature was 97.5, pulse 66, respirations 17, blood pressure 58/29, oxygen saturation 96% on room air. She was given a total of 1500 mL of normal saline. Blood pressure continues to be in the 80s systolic. Lactic acid is 3.5. She is being admitted to [facility] for evaluation and further treatment. PAST MEDICAL HISTORY 1. Admission to [facility] in July 2016 for left foot wound. She underwent amputation during that admission (no records). 2. Admission to [facility] 07/24 through 07/27/2016 for CHF exacerbation. She underwent cardiac catheterization during that admission that showed per the discharge summary, ejection fraction of 20% to 30% with 4+ mitral regurgitation and marked dilated left atrium; moderate pulmonary hypertension was noted with a right ventricular systolic pressure of 57 mmHg. Left main, left circumflex, right coronary artery were all normal. LAD was normal, first diagonal had 60% stenosis. I do not see an operative note in [facility]. She also was noted to have ESBL urinary tract infection and was discharged home on meropenem. 3. Congestive heart failure with an ejection fraction of 20% to 30% noted on cardiac catheterization in July 2016. She is followed by Dr. Meyer. Unit #: [id number] #: [id number] Patient: BAR BRISENO 4. Severe mitral regurgitation. Again, noted on cardiac catheterization in July 2016. 5. End-stage renal disease on dialysis. Followed by Dr. Cordova Wednesday, Wednesday, and Wednesday with last dialysis today. 6. Paroxysmal atrial fibrillation on chronic anticoagulation with Coumadin. 7. Chronic left foot wound followed by the wound care center at [place], status post recent partial amputation of the left foot including the fifth digit. 8. Diabetes. 9. Hypertension. 10. Hyperlipidemia. 11. Chronic anemia. 12. Pulmonary hypertension with right ventricular systolic pressure as noted above. 13. History of tuberculosis requiring surgery. 14. 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 PAST SURGICAL HISTORY 1. Cardiac catheterization. 2. Cervical spine and lower spine surgery. 3. Cholecystectomy. 4. Exploratory laparotomy and right hemicolectomy. 5. Bilateral knee surgery. 6. Cataract extraction. ALLERGIES 1. Phenothiazine. 2. Penicillin. 3. Sulfa. 4. Acetaminophen. 5. Dextromethorphan. 6. Promethazine. 7. IV dye. HOME MEDICATIONS Per the discharge summary, from 07/27/2016, include: 1. Lactulose 20 grams daily p.r.n. for constipation. 2. Amiodarone 200 mg daily. 3. Coumadin 3 mg daily. 4. Paxil 60 mg daily. 5. Lidoderm patch daily. 6. Ativan 1 mg b.i.d. p.r.n. 7. Coreg 6.25 mg b.i.d. 8. Dulcolax suppository p.r.n. 9. Colace 100 mg b.i.d. 10. Lasix 40 mg b.i.d. 11. Latanoprost eye drops one drop b.i.d. 12. Lipitor 10 mg daily. 13. Lisinopril 20 mg daily. 14. Renagel 800 mg t.i.d. 15. Anexsia 7.5/325 q.4 h. p.r.n. 16. Imdur 60 mg daily. 17. Nephrocaps daily. 18. Vitamin D 50,000 units weekly. 19. Timoptic eye drops daily. Unit #: [id number] #: [id number] Patient: BAR BRISENO Home medications will need to be reviewed and verified. SOCIAL HISTORY The patient lives with her . She walks with a walker. She quit smoking years ago. Her code status is a FULL CODE. FAMILY HISTORY Notable for hypertension and coronary artery disease. REVIEW OF SYSTEMS A complete review of systems is negative except as indicated in the HPI. PHYSICAL EXAMINATION VITAL SIGNS: Temperature 97.5, pulse 66, respirations 17, blood pressure 58/29, the most recent documented blood pressure was 77/30, oxygen saturation 96% on room air. GENERAL: The patient is a very pleasant female who is awake and alert. HEENT: Head is atraumatic. Mucous membranes are moist. NECK: Supple. Trachea is midline. LUNGS: Relatively clear to auscultation bilaterally, no increased work of breathing. HEART: Regular rate and rhythm. ABDOMEN: Soft, nontender. Bowel sounds present in all four quadrants. EXTREMITIES: Nontender with no pedal edema. The left foot demonstrates previous amputation of the second digit as well as the fifth. There is a 2+ dorsalis pedis pulse involving the left foot. The wound from recent amputation appears to be healing. NEUROLOGIC: Patient is awake and alert. She is oriented x3. She follows commands. PSYCHIATRIC: Mood and affect are normal. Patient is cooperative. SKIN OF EXAMINED AREAS: Warm and dry. DIAGNOSTIC STUDIES LABORATORY: Complete blood count notable for hemoglobin 10.8, hematocrit 34.7. Lactic acid 2.5. Comprehensive metabolic panel notable for chloride 97, glucose 173, BUN 17, creatinine 3.3, ALT 45, alkaline phosphatase 105, albumin 3.4. INR 2.6. Troponin less than 0.05. Arterial blood gas shows pH 7.402, pCO2 of 42.8, pO2 of 70.4 on room air. IMAGING: Chest x-ray shows mild stable cardiac enlargement with probably small bilateral pleural effusions. CARDIOVASCULAR: EKG showed sinus bradycardia with a rate of 58 beats per minute. ASSESSMENT The patient is a 76-year-old female with: 1. Hypotension. Reviewing [facility] records, the patient's blood pressure typically runs in the 130s to 170s based on her last admission in July. She was given a total of 1.5 liters of normal saline in the emergency department. Lactic acid was 3.5, I suspect this is secondary to hypoperfusion. I do not see any signs of infection and have not started any antibiotics. Blood pressure was in the 80s at dialysis. The patient had her normal dialysis and then took her home antihypertensive medications. I am hesitant to give the patient anymore fluid and will, therefore, start her on pressor. 2. End-stage renal disease on dialysis with last dialysis today, Unit #: [id number] #: [id number] Patient: BAR BRISENO followed by Dr. Cordova. 3. Chronic anemia. The patient's hemoglobin was 9.3 on 07/27/2016, it is 10.8 today. 4. Lactic acidosis. Again, I suspect that this is related to hypoperfusion. I do not think the patient has infection and have not started antibiotics. 5. Congestive heart failure with an ejection fraction of 20% to 30% noted on cardiac catheterization done in July 2016. 6. Severe mitral regurgitation. 7. Paroxysmal atrial fibrillation. 8. Chronic anticoagulation with an INR of 2.6. 9. Diabetes. 10. Hyperlipidemia. 11. Pulmonary hypertension with right ventricular systolic pressure as noted above. 12. Left foot wound, status post amputation in July. PLAN 1. Admit to intermediate level. 2. 2-gram sodium, 1800 mL fluid restricted, heart-healthy consistent carb diet. 3. Dobutamine drip at 2 mcg/kg per minute. 4. Monitor blood pressure closely. 5. Blood cultures x2. 6. Consult Dr. Cordova regarding end-stage renal disease and dialysis needs. 7. Strict I's and O's. 8. Daily weights. 9. Serial cardiac enzymes. 10. Hemoglobin A1c. 11. Low-dose sliding scale insulin with Accu-Cheks. 12. Repeat lactic acid later this evening. 13. Repeat labs in the morning. 14. Additional workup and consultants based on above. 15. Regarding code status, the patient is a FULL CODE. Dictated by Tyler Henao/sky TD: 10/07/2016 18:03 JOB #: [id number] HISTORY AND PHYSICAL Page 1 of 1 X Dunia Yung MD X HISTORY AND PHYSICAL
--- NOTE | ~2016-10-07 | CR72 ---
[facility] A Service of [facility] RADIOLOGY TEXT RESULTS PATIENT: BAR BRISENO LOCATION: [place] [address] : 40 UNIT #: [id number] AGE: [address]: Cleve Michelle MD SEX: F ORDER DR: [id number] [facility] [address] [facility]. [place], [place] [address] [id number] I MR#: [id number] Acc #: [id number] NAME: BAR BRISENO. : 1940 SEX: F STUDY DATE/TIME: 10/10/2016 5:38 UNIT: [facility] ROOM: [facility] STUDY DESCRIPTION: CR Chest Single View Portable Attending Physician: Cleve Michelle M.D. Ordering Physician: Tk Reis M.D. Primary Care Physician: Te Clemente D.O. MEDICAL IMAGING REPORT This report is preliminary unless electronic signature is present EXAM Portable chest INDICATION Shortness of breath, dizziness since October 07. COMPARISON 10/07/2016. FINDINGS There is increased atelectasis in the right base. Heart size stable. Atherosclerotic calcification of the aorta. IMPRESSION Increased atelectasis in the right base. Dictated by... Benedict Luque M.D. THIS IS AN ELECTRONICALLY VERIFIED REPORT Benedict Luque M.D. at 10/10/2016 3:56 PM LIZZY/chaparro TD: 10/10/2016 14:54 JOB #: [id number] MEDICAL IMAGING REPORT Page 1 of 1 COPY
--- NOTE | ~2016-10-07 | CR72 ---
[facility] A Service of [facility] RADIOLOGY TEXT RESULTS PATIENT: BAR BRISENO LOCATION: [address] : 40 UNIT #: [id number] AGE: [address]: Cleve Michelle MD SEX: F ORDER DR: [id number] [facility] [address] [facility]. [place], [place] [address] [id number] MR#: [id number] Acc #: [id number] NAME: BAR BRISENO : 1940 SEX: F STUDY DATE/TIME: 10/07/2016 15:14 UNIT: [facility] ROOM: STUDY DESCRIPTION: CR Chest Single View Portable Attending Physician: Damián Knapp M.D. Ordering Physician: Damián Knapp M.D. Primary Care Physician: Te Clemente D.O. MEDICAL IMAGING REPORT This report is preliminary unless electronic signature is present EXAM Portable chest x-ray, 10/07/2016. HISTORY Dizziness. Short of air, dizziness, low blood pressure, CHF, renal failure. Former smoker. TECHNIQUE AP radiograph of the chest is presented. COMPARISON 07/24/2016 FINDINGS Cervical spine fixation hardware grossly unchanged from prior study. There is a long vascular stent in the left axillobrachial region. Given caliber, this is probably venous in location. Unchanged in visualized extent from prior study. Stable dextroscoliosis, thoracic spine. No acute-appearing bony abnormality. Mild cardiac enlargement, stable. The lungs are well inflated bilaterally. No clear indication of acute infectious or inflammatory disease. No suspicious nodule. No pneumothorax. Probable small bilateral pleural effusions. Dictated by... Artemio Joseph M.D. THIS IS AN ELECTRONICALLY VERIFIED REPORT Artemio Joseph M.D. at 10/08/2016 9:03 AM JESICA/sharmaine TD: 10/07/2016 17:54 [facility] A Service of [facility] RADIOLOGY TEXT RESULTS PATIENT: BAR BRISENO LOCATION: [address] : 40 UNIT #: [id number] AGE: [address]: Cleve Michelle MD SEX: F ORDER DR: JOB #: [id number] MEDICAL IMAGING REPORT Page 1 of 1 COPY
--- NOTE | ~2016-10-07 | DS ---
Unit #: [id number] #: [id number] Patient: BAR BRISENO [id number] [address] [place], [place] [address] [id number] I MR#: [id number] NAME: BAR BRISENO ROOM: 318 Age: 76 Sex: F Admission Date: 10/07/2016 : 1940 Discharge Date: 10/13/2016 Attending Physician: Cleve Michelle M.D. Primary Care Physician: Te Clemente D.O. DISCHARGE SUMMARY ADMITTING DIAGNOSIS Hypotension. FURTHER DIAGNOSES 1. Hypotension, secondary to taking excessive blood pressure medications. 2. End-stage renal disease on hemodialysis. 3. Chronic systolic heart failure. 4. Atrial fibrillation on anticoagulation. 5. Chronic anemia. 6. Congestive heart failure. 7. Chronic systolic mitral regurgitation. 8. Diabetes. 9. Hyperlipidemia. 10. Pulmonary hypertension. 11. Left foot wound. HISTORY OF PRESENTING ILLNESS The patient is a 76-year-old lady with multiple medical problems who presented to the emergency room on 10/07/2016 with a chief complaint of hypotension. Apparently she on dialysis. She went for dialysis and post dialysis her blood pressures were in the 90s to 100s. On top of that she took her hypertensive medications and her blood pressures dropped down. She presented to the emergency room with lightheadedness and dizziness. In the initial emergency room blood pressures were 59/40. She was given IV fluids. She was initially admitted in the ICU. She was seen by Dr. Tk Reis for ICU management and Dr. Meyer/Dr. Kim for cardiology. Her medications were dose adjusted. All her hypertensive medications, including Imdur, Coreg, lisinopril were kept on hold. She was seen by Dr. Joe Arboleda, for end stage renal disease. She was dialyzed here and blood pressures were holding in the 90s. I spoke with cardiology and renal teams today. They mentioned it was okay to discharge. Will hold all hypertensive medications. Her INR is 1.9 today. She is anticoagulation for AFib. We instructed her to follow with her cardiology with a repeat INR within a week. Follow with her primary care. She is doing clinically better. Will discharge her home. PHYSICAL EXAMINATION ON DAY OF DISCHARGE VITAL SIGNS: Temperature 97.8, pulse rate 59, respirations 20, blood pressure 92/58. GENERAL: Patient is alert and oriented x3. No symptoms of lightheadedness. HEENT: Normocephalic and atraumatic. No icterus. PERRLA. Extraocular movements are intact. NECK: Supple. No JVD. Unit #: [id number] #: [id number] Patient: BAR BRISENO HEART: S1, S2. Irregular. CHEST: Bilaterally equal to clear to auscultation. ABDOMEN: Soft, nontender. EXTREMITIES: No edema. No peripheral pulses. DISCHARGE MEDICATIONS 1. Amiodarone 100 mg p.o. daily. 2. Coumadin. Will continue to target INR between 2 to 3. 6 mg on Wednesday, 3 mg on the rest of the days. 3. Paxil 60 mg daily. 4. Ativan 1 mg p.r.n. for anxiety. She does have her home medications, we are not giving her any new prescriptions 5. Tramadol 0.25% eye drops daily. 6. Colace 100 mg daily. 7. Latanoprost 1 drop at bedtime. 8. Lipitor 10 mg daily. 9. Midodrine 10 mg p.o. 3 times a day. 10. Lumigan eye drops. 11. Renagel 800 mg p.o. 3 times a day and 1600 mg p.o. 3 times a day with meals. 12. Synthroid 25 mcg p.o. daily. 13. Nephrocaps 1 capsule p.o. daily. 14. Vitamin D 50,000 units p.o. q. weekly. FOLLOWUP She is instructed to follow with her primary care in one to two weeks. Total time spent in her care, 35 minutes. Dictated by... Tyler Card TD: 10/13/2016 12:52 JOB #: [id number] DISCHARGE SUMMARY Page 1 of 1 X X DISCHARGE SUMMARY
--- NOTE | ~2016-10-07 | CO ---
Unit #: [id number] #: [id number] Patient: BAR BRISENO [id number] [address] [place], [place] [address] [id number] I MR#: [id number] NAME: BAR BRISENO ROOM: 318 Age: 76 Sex: F Admission Date: 10/07/2016 : 1940 Attending Physician: Cleve Michelle M.D. Primary Care Physician: Te Clemente D.O. CONSULTATION REPORT REASON FOR CONSULTATION Abnormal thyroid function test. HISTORY OF PRESENT ILLNESS This is a 76-year-old female with history of multiple medical problems including ischemic cardiomyopathy, end-stage renal disease on hemodialysis, paroxysmal atrial fibrillation, anemia of chronic disease, on amiodarone treatment, who was admitted with the hypotension. On her labs, she was found to have abnormal thyroid function test with the TSH was elevated. I have been asked to see the patient for further management. Note, the patient has no history of any hypo or hyperthyroidism in the past. She has not been treated in the past with any thyroid hormone supplements. REVIEW OF SYSTEMS Ten-point review of system is completed unremarkable for any hypo or hyperthyroid symptoms. PAST MEDICAL HISTORY Ischemic cardiomyopathy, end-stage renal disease, type 2 diabetes mellitus, hyperlipidemia, depression. PAST SURGICAL HISTORY Toe amputations, right hemicolectomy, cholecystectomy, bilateral knee surgeries. HOME MEDICATIONS Pacerone was 200 mg daily, which is reduced to 100 mg daily; Lorazepam; Coumadin; Renvela. ALLERGIES Penicillin, sulfonamides, acetaminophen, promethazine. SOCIAL HISTORY Lives with her . Walks with a walker. Quit smoking several years ago. FAMILY HISTORY Remarkable for coronary artery disease. PHYSICAL EXAMINATION GENERAL: She is lying comfortably in the bed, in no acute distress. VITAL SIGNS: Stable. Afebrile. Unit #: [id number] #: [id number] Patient: BAR BRISENO HEENT: EOMI. Pupils equally reactive to light. NECK: Supple. No thyromegaly noted. CHEST: Good air entry. CVS: Regular rhythm. No murmurs. ABDOMEN: Benign. NEURO: Nonfocal. DIAGNOSTIC STUDIES LABORATORY RESULTS: Reviewed. Creatinine is 7.1, potassium is 5.4. TSH is 0.97, free T4 is 0.69. ASSESSMENT 1. Mild hypothyroidism most likely secondary to the amiodarone. 2. History of paroxysmal atrial fibrillation. 3. Ischemic cardiomyopathy. 4. End-stage renal disease, on hemodialysis. PLAN We will start the patient on levothyroxine 25 mcg daily. We will try to titrate the dose very gradually. We will continue all the other medications same. I will see her in my office in about 4 to 6 weeks. Dictated by... Tyler Martinez/river TD: 10/13/2016 07:50 JOB #: [id number] CONSULTATION REPORT Page 1 of 1 X Alton Fowler MD X CONSULTATION REPORT
--- NOTE | ~2016-10-07 | CR72 ---
[facility] A Service of [facility] RADIOLOGY TEXT RESULTS PATIENT: BAR BRISENO LOCATION: [facility] 318- : 40 UNIT #: [id number] AGE: [address]: Cleve Michelle MD SEX: F ORDER DR: [id number] [facility] [address] [place], [place] [address] [id number] I MR#: [id number] Acc #: [id number] NAME: BAR BRISENO. : 1940 SEX: F STUDY DATE/TIME: 10/13/2016 5:49 UNIT: [address] ROOM: [facility] STUDY DESCRIPTION: CR Chest Single View Portable Attending Physician: Cleve Michelle M.D. Ordering Physician: Tk Reis M.D. Primary Care Physician: Te Clemente D.O. MEDICAL IMAGING REPORT This report is preliminary unless electronic signature is present EXAM Portable chest HISTORY Hypotension. Patient on dialysis. COMPARISON 10/10/2016 FINDINGS Portable view of the chest demonstrates right-sided volume loss with mild elevation of the right hemidiaphragm and small amount of right basilar atelectasis. Borderline cardiomegaly. Pulmonary vascularity is within normal limits. No sizeable effusions. Mild aortic atherosclerotic changes. Vascular stents are noted within both axillary regions. No pneumothorax. Dictated by... Maeve Luque M.D. THIS IS AN ELECTRONICALLY VERIFIED REPORT Maeve Luque M.D. at 10/13/2016 3:31 PM Ruddy TD: 10/13/2016 08:11 JOB #: [id number] MEDICAL IMAGING REPORT Page 1 of 1 COPY
--- NOTE | ~2016-10-07 | CO ---
Unit #: [id number] #: [id number] Patient: BAR BRISENO [id number] [address] [place], [place] [address] [id number] I MR#: [id number] NAME: BAR BRISENO. ROOM: [facility] Age: 76 Sex: F Admission Date: 10/07/2016 : 1940 Attending Physician: Cleve Michelle M.D. Primary Care Physician: Te Clemente D.O. Consultation Date: 10/09/2016 CONSULTATION REPORT REASON FOR CONSULTATION Hypotension. HISTORY OF PRESENT ILLNESS This is a 76-year-old white female, well known to Dr. Meeyr, he follows in the office; has a history of ischemic cardiomyopathy. She has end-stage renal disease, on hemodialysis; history of paroxysmal atrial fibrillation; chronic anemia; recent toe amputation at [facility] [place] [facility] in July; history of GI bleed; had a right colectomy in last April; is also a diabetic and hypertension and has severe mitral regurgitation that was found on her last catheterization in July of this year, who came to the emergency room after she became very lightheaded, dizzy, and weak. According to the patient given the information, she went to have her dialysis done on the day of admission. When they started dialysis session, her blood pressure was in the 80s systolically and continued throughout the whole session. The patient tolerated the procedure without any problem. She came home and she took all of her morning and mid-day medications. She then later in the day was going out with her family and was in the car and became very lightheaded, weak, and the family was concerned due to her multiple medical issues. They brought her into the emergency room for further evaluation. She denies any syncopal episode. She denies any chest pain or pain in her neck, bilateral jaws, shoulders, arms, or elbow. She denies any cough, fever, or chills, and she denies any nausea, vomiting, diarrhea, or abdominal pain. In the emergency room, the patient's blood pressure was found to be 58/29, her heart rate was 66, respirations 16, she was afebrile, O2 saturation was 96% on room air. She was started immediately on normal saline and received 2 boluses and then ended up getting on a dobutamine drip due to the known fact that she has cardiomyopathy. Her lactic acid was 3.5. Other labs; her BUN is 46, creatinine 6, potassium is 4.4. Initial cardiac enzymes are negative. The patient's RBC is 10.4 and her WBC is 10.6. The patient's chest x-ray showed probable small bilateral pleural effusions. Her EKG showed sinus bradycardia, heart rate 58 beats per minute, some nonspecific ST-T wave abnormalities considering anterior ischemia. The patient was later changed from dobutamine to Ganesh-Synephrine drip for better blood pressure control. Cardiology has been consulted to assist with evaluation and management. PAST MEDICAL HISTORY 1. Right and left heart catheterization done on 07/27/2016 showed LVEF of Unit #: [id number] #: [id number] Patient: BAR BRISENO 20% to 30% with a 4+ mitral regurgitation with markedly dilated left atrium, moderate pulmonary artery hypertension with elevated RVSP 57 mmHg. 2. The first diagonal had a 60% stenosis; left main, left circumflex, and RCA were all normal. 3. In 02/2016, 2D echo revealed LVEF of 50% to 55% with zmje-dv-lvrambcf MR, gdtm-ju-wqrafznf TR and left ventricular hypertrophy and small pericardial effusion versus fat tissue. 4. End-stage renal disease, on hemodialysis. 5. Diabetes mellitus, type 2. 6. Hyperlipidemia. 7. Hypertension. 8. History of paroxysmal atrial fibrillation. 9. History of systolic congestive heart failure. 10. Chronic anemia. 11. Depression. 12. Reformed smoker. 13. In 04/2016, she had a GI bleed and scope showed a mass and she had a right hemicolectomy. 14. Recent toe amputation at [facility] in 07/2016. 15. Reformed smoker. 16. 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 PAST SURGICAL HISTORY 1. Toe amputation at [place] in 07/2016. 2. Right hemicolectomy for a colon mass in 04/2016. 3. Tuberculosis requiring surgery. 4. Cervical spine and lower spine surgery. 5. Cholecystectomy. 6. Bilateral knee surgery. 7. Cataract extraction. HOME MEDICATIONS Pacerone 200 mg p.o. daily; Paxil 60 mg p.o. daily; lorazepam 1 mg p.o. b.i.d. p.r.n.; latanoprost one drop both eyes b.i.d.; Lipitor 10 mg p.o. daily; Renvela 800 mg p.o. twice daily; Nephrocaps one capsule p.o. daily; vitamin D weekly; Coumadin 3 mg p.o. daily; carvedilol 6.25 mg p.o. b.i.d.; lisinopril 10 mg p.o. daily; Imdur ER 60 mg p.o. daily; Coumadin 6 mg p.o. daily on Sundays; Lumigan 1 drop both eyes daily. ALLERGIES penicillins, sulfonamides, acetaminophen, dextromethorphan, and promethazine. SOCIAL HISTORY The patient lives with her . She walks with a walker. She quit smoking years ago. No alcohol or illicit drug abuse. FAMILY HISTORY Positive for coronary artery disease, no specifics and hypertension. REVIEW OF SYSTEMS See details in HPI. PHYSICAL EXAMINATION GENERAL: Ms. Briseno is a 76-year-old white female, in no acute respiratory distress. She is awake, alert, and oriented. VITAL SIGNS: Blood pressure is currently 114/28 on Ganesh-Synephrine drip, Unit #: [id number] #: [id number] Patient: BAR BRISENO heart rate is 50, respirations 16, afebrile. NECK: Trachea midline. No thyromegaly or lymphadenopathy. Normal carotid upstrokes. No jugular venous distention. HEART: S1 and S2. Systolic murmur over aortic region and left sternal border. LUNGS: Diminished, but clear. ABDOMEN: Obese, soft, nontender. EXTREMITIES: Pedal pulses are palpable. Trace pedal edema. DIAGNOSTIC STUDIES LABORATORY RESULTS: PH is 7.402, pCO2 of 42.8, pO2 is 70.4, occult blood 25.1, O2 saturation is 91.8, 1.1, FiO2 is 21. BUN is 46, creatinine is 6.0, glucose is 86, eGFR is 6.3, sodium 135, potassium 4.4, chloride is 99, CO2 is 25, calcium is 8.2, total protein 5.8, albumin 3.0, bilirubin total 0.6, AST 41, ALT 44, and alkaline phosphatase is 94. Initial cardiac enzymes; CK total is 65, MB is 2.9, percentage of MB is 4.5, and troponin is less than 0.03. Repeat troponin is less than 0.03. Hemoglobin A1c is 5.8. Lactic acid was 3.5 on admission; today, it is 2.0. TSH is elevated at 8.97 with T4 of 0.69 and T3 is 1.9. INR is 2.2. WBC is 10.6, hemoglobin is 10.4, hematocrit is 32.9, and platelets are 176. Blood cultures 1 or 2 sets are growing Staphylococcus species coagulase negative, probable skin contaminant. Chest x-ray shows a long vascular stent in the left axillobrachial area, stable dextroscoliosis thoracic spine, mild cardiac enlargement. Lungs were well inflated bilaterally. No clear indication of acute infection or inflammatory disease. Suspicious nodule, probable small bilateral pleural effusions. EKG shows sinus bradycardia, heart rate 58 beats per minute, T-wave inversion in V1 through V4, some nonspecific ST-T wave abnormalities, prolonged QT. IMPRESSION 1. Hypotension. 2. End-stage renal disease, on hemodialysis. 3. On last right and left heart catheterization, LVEF was found to be 20% to 30% with 4+ mitral regurgitation with moderate to severe pulmonary artery hypertension with RVSP 57 mmHg, and other findings on the catheterization, the first diagonal has 60% stenosis with the other vessels normal. 4. In 02/2016, latest 2D echo, LVEF of 50% to 55% with mhop-ff-tpyuzxxh mitral regurgitation, kjhe-cs-nxzzjtla tricuspid regurgitation, and left ventricular hypertrophy. 5. Diabetes mellitus, type 2. 6. Hypertension. 7. History of paroxysmal atrial fibrillation. 8. Hyperlipidemia. 9. History of chronic systolic congestive heart failure. 10. Recent toe amputation on the left. 11. Positive blood cultures / showing gram-positive cocci in pairs. Unit #: [id number] #: [id number] Patient: BAR BRISENO PLAN 1. Cardiology consulted to help with managing the patient's hypotension in addition to recommendations on resuming her cardiac medications. 2. Currently, the patient's EKG showing sinus bradycardia. She is on Ganesh-Synephrine drip to sustain a systolic blood pressure of greater than 100. Her blood pressure is running 90s to 100s systolically. We will try to titrate off the Ganesh-Synephrine tonight if possible. 3. Dr. in the records showing that she has had a known severe mitral regurgitation and moderate pulmonary hypertension that when her infection clears or her hypotension is improved that he will discuss with her mitral valve replacement. As far as holding on hold off still on the nitrate. 4. Obtain blood pressures lying and standing. 5. In addition to stopping the beta-jeremias and lisinopril, we will stop the nitrate Imdur. 6. We will get her out of bed and see how the patient feels. On exam, there are no signs or symptoms of acute congestive heart failure or unstable angina. Cardiac enzymes are negative. 7. The patient is on antibiotics. The patient has been ordered new blood cultures when she gets her next dialysis, which I think is today. 8. When the patient is off the Ganesh-Synephrine, she can be moved out of the unit to telemetry. 9. The patient's TSH was elevated. T3 and T4 were also noted. The patient may need to be evaluated by Dr. Fowler. 10. Further recommendations pending per Dr. Meyer. Thank you very much for allowing us to assist in the care. Dictated by... Kiana Coker A.P.R.N. for Tyler Nino/river TD: 10/10/2016 07:06 JOB #: [id number] CONSULTATION REPORT Page 1 of 1 X Kiana Coker APRN X CONSULTATION REPORT
--- NOTE | ~2016-10-07 | CO ---
Unit #: [id number] #: [id number] Patient: BAR BRISENO [id number] [place], [place] [address] [id number] I MR#: [id number] NAME: BAR BRISENO. ROOM: [facility] Age: 76 Sex: F Admission Date: 10/07/2016 : 1940 Attending Physician: Cleve Michelle M.D. Primary Care Physician: Te Clemente D.O. CONSULTATION REPORT Ms. Briseno is a pleasant 76-year-old lady with a past medical history of end stage renal disease on hemodialysis, chronic anemia, congestive heart failure, severe mitral regurgitation, paroxysmal atrial fibrillation, chronic anticoagulation with Coumadin, diabetes, hyperlipidemia, pulmonary hypertension, regular hypertension, history of left foot wound that is not healing, presented to the emergency department with low blood pressure. The patient has had dialysis for several days which her blood pressure tends to bottom out during the dialysis lately. Went home. However, this was very severe during the last session. According to her, when she saw her sql ssrs ssis developer during her dialysis sessions, he told her he was adjusting all of her medications. However, after she went home, she took all of her regular medications in addition as usual and she forgot that they had been redosed so she may have doubled up on some of them. She was in the car with another family member driving to an appointment and she felt very lightheaded and dizzy, brought to the emergency department. She was not having chest pain, fever, chills, nausea, vomiting, diarrhea or upper respiratory tract symptoms. Patient was evaluated and admitted to the unit for close observation. Wound had been healing well. Temperature is 97.5, pulse 66, respirations 17. Blood pressure in the ER was 58/29. Sat'ing 96% on room air. The patient was given a bolus of 1.5 L of normal saline which brought her blood pressures into the 80s systolic. Lactic acid is 3.5. The patient was admitted for further treatment and evaluation of blood pressure. We have been asked to see for ICU management. Troponins have all been less than 0.03. However, procalcitonin is 1.17. REVIEW OF SYSTEMS Significant for what is in the history of present illness. Otherwise, a twelve point review of systems is negative. PAST MEDICAL HISTORY Significant for: 1. Left foot wound with amputation July 2016. 2. Amputation of the right first and second toe. 3. The patient was admitted on 07/24 for CHF exacerbation with ejection fraction 20% to 40%, 4+ mitral regurgitation. Right ventricular systolic pressure of 57. 4. Patient had been note to have an ESBL urinary tract infection, discharged home on meropenem. 5. Patient has congestive heart failure, normally with ejection fraction 20% to 30%, followed by Dr. Meyer. 6. Patient has severe mitral regurgitation. 7. Patient has end-stage renal disease, on dialysis on Wednesday, Unit #: [id number] #: [id number] Patient: BAR BRISENO Wednesday, and Wednesday. 8. Patient has paroxysmal atrial fibrillation with chronic anticoagulation, on Coumadin. 9. Has chronic left foot wound followed by [facility]. 10. History of diabetes. 11. History of hypertension. 12. History of hyperlipidemia. 13. History of chronic anemia. 14. History of tuberculosis requiring surgery. 15. History of MRSA of the knee. PAST SURGICAL HISTORY Significant for: 1. Cardiac catheterizations. 2. Cervical spine and lower spine surgery. 3. Cholecystectomy. 4. Ex laparotomy with right hemicolectomy. 5. Bilateral knee surgery. 6. Cataract extraction. ALLERGIES The patient is allergic to phenothiazine, penicillin, sulfa, acetaminophen, dextromethorphan, promethazine, IV dye. MEDICATIONS Home meds per discharge summary. These include: 1. Lactulose 20 grams daily. 2. Amiodarone 200 mg daily. 3. Coumadin 3 mg daily. 4. Paxil 60 mg daily. 5. Lidoderm patch as needed. 6. Ativan 1 mg b.i.d. as needed. 7. Coreg 6.25 b.i.d. 8. Dulcolax suppository p.r.n. 9. Colace 100 mg b.i.d. 10. Lasix 40 mg b.i.d. 11. Latanoprost eye drops b.i.d. 12. Lipitor 40 mg daily. 13. Lisinopril 20 mg daily. 14. Renagel 800 mg three times a day. 15. Anexsia 7.5/325 q.4 h. p.r.n. 16. Imdur 60 mg daily. 17. Nephrocaps once daily. 18. Vitamin D 50,000 units weekly. 19. Timoptic eye drops daily. SOCIAL HISTORY The patient lives with her . Walks with a walker. Quit smoking years ago. No polysubstance use. No known occupational exposure. No history of alcohol. FAMILY HISTORY Hypertension, coronary artery disease. PHYSICAL EXAMINATION VITAL SIGNS: T current 97.8, pulse 58, respiratory rate 19, blood pressure 112/50, sat'ing 94% via nasal cannula. CHEST: Decreased breath sounds. Unit #: [id number] #: [id number] Patient: BAR BRISENO CARDIOVASCULAR: Regular rate, no gallop. ABDOMEN: Soft, nontender, nondistended. EXTREMITIES: Edema +1, +2. DIAGNOSTIC STUDIES LABORATORY: White count 10.8, hemoglobin 10, platelets 146, BUN and creatinine 26 and 4.4, calcium 8.2. Procalcitonin is 1.17. IMAGING: Chest x-ray is clear. ASSESSMENT AND PLAN 1. Hypotension, may be due to over-dehydration or may be due to blood pressure meds: The patient is going to get hemodialysis in a.m. with midodrine and albumin. Hopefully, that will no longer be a problem and she can be moved out of the unit. 2. Elevated procalcitonin: I am still concerned about some infection somewhere. However, patient does not pee anymore to have a urinary tract infection. She does not appear septicemic so I am concerned about other possible sources of infection such as wound or bowel. Lets repeat the chest x-ray in the morning. I would like to continue patient's vancomycin until more becomes clear. Dictated by... Tyler Altman TD: 10/09/2016 11:21 JOB #: [id number] CONSULTATION REPORT Page 1 of 1 X Luis Reis MD CONSULTATION REPORT
--- NOTE | ~2016-10-07 | EKG ---
PATIENT: BAR BRISENO UNIT #: [id number] Ventricular Rate: 58 BPM Atrial Rate: 58 BPM P-R Interval: 196 ms QRS Duration: 100 ms Q-T Interval: 508 ms QTC Calculation(Bezet): 498 ms P [place]: 52 degrees Calculated R [place]: -7 degrees Calculated T [place]: 81 degrees Diagnosis Line: Sinus bradycardia Diagnosis Line: ST and T wave abnormality, consider anterior Diagnosis Line: ischemia Diagnosis Line: Prolonged QT Diagnosis Line: Abnormal ECG Diagnosis Line: When compared with ECG of 27-JUL-2016 05:37, Diagnosis Line: No significant change was found Diagnosis Line: Confirmed by LINDA KNIGHT MD ([id number]) on 10/08/2016 Diagnosis Line: 11:14:38 PM INTERPRETING MD: ANTONIA PELLETIER
[2016-10-07 15:22] LABS: BASOPHIL# 0.1 X10e3 (0-0.3); BASOPHIL% 0.7 % (0-2.5); EOSINOPHIL# 0.2 X10e3 (0-0.7); EOSINOPHIL% 1.9 % (0.0-7.0); HEMATOCRIT 34.7 % (35.0-45.0); HEMOGLOBIN 10.8 gm/dL (12.0-16.0); LYMPHOCYTE# 1.4 X10e3 (1.0-3.5); LYMPHOCYTE% 16.7 % (17.0-45.0); MEAN CELL VOLUME 96.6 FL (83-96); MEAN CORPUSCULAR HEMOGLOBIN 30.2 PG (28-34); MEAN CORPUSCULAR HGB CONC 31.3 g/dL (30-36); MEAN PLATELET VOLUME 8.7 FL (6.5-11.5); MONOCYTE# 0.9 X10e3 (0-1.0); MONOCYTE% 11.3 % (3.0-12.0); NEUTROPHIL# 5.8 X10e3 (1.5-7.1); NEUTROPHIL% 69.4 % (40-75); PLATELET COUNT 187 X10e3 (140-420); RED BLOOD COUNT 3.59 X10e (3.90-5.30); RED CELL DISTRIBUTION WIDTH 21.6 % (11.0-15.5); WHITE BLOOD COUNT 8.4 X10e3 (4.0-10.5)
[2016-10-07 15:24] LABS: DIFF IND NO
[2016-10-07 15:40] LABS: ALBUMIN SERUM 3.4 g/dL (3.5-5.0); BILIRUBIN, DIRECT 0.1 mg/dL (0.0-0.2); BILIRUBIN,INDIRECT 0.3 mg/dL (0.0-0.9); BILIRUBIN,TOTAL 0.4 mg/dL (0.2-2.0); BUN/CREATININE RATIO 5.15; CALCIUM SERUM 8.6 mg/dL (8.4-10.2); CREATININE SERUM 3.3 mg/dL (0.6-1.4); GLOM FILT RATE Estimated 12.9 mL/min (>60); POTASSIUM 3.5 mmol/L (3.5-5.1); PROTEIN TOTAL SERUM 6.5 g/dL (6.0-8.3)
[2016-10-07 15:42] LABS: INR 2.6; PARTIAL THROMBOPLASTIN TIME 37.7 SECONDS (23.5-31.3)
[2016-10-07 15:43] LABS: PROTHROMBIN TIME (PATIENT) 28.1 SECONDS (9.6-11.5)
[2016-10-07 16:04] LABS: POC - CKMB 1.2 ng/mL (0.0-7.9); POC - TROPONIN <0.05 ng/mL (<=0.05)
[2016-10-07 16:34] LABS: ARTERIAL BLD GAS O2 SATURATION 91.8 % (90.0-100.0); ARTERIAL BLOOD GAS CARBOXY HB 0.8 %sat (0.0-9.0); ARTERIAL BLOOD GAS HCO3 26.7 mmol/L; ARTERIAL BLOOD GAS MET HB 1.1 %sat (0.0-2.0); ARTERIAL BLOOD GAS PCO2 42.8 mmHg (35.0-45.0); ARTERIAL BLOOD GAS pH 7.402 (7.350-7.450)
[2016-10-07 16:35] LABS: ARTERIAL BLOOD GAS ALLEN TEST NORMAL; ARTERIAL BLOOD GAS ART SITE RIGHT RADIAL; ARTERIAL BLOOD GAS PO2 70.4 mmHg (80.0-100); ARTERIAL DRAW? YES
[2016-10-07] MEDS ORDERED: COUMADIN PO (21:06)
[2016-10-07] MEDS ORDERED: RENVELA800 MG PO (21:07)
[2016-10-07] MEDS ORDERED: LUMIGAN2.5 ML (21:09)
[2016-10-07] MEDS ORDERED: TIMOPTIC 0.25% O5 M1 OU (21:10)
[2016-10-07] MEDS ORDERED: LORAZEPAM1 MG PO (21:10)
[2016-10-08 03:04] LABS: %MB 4.5 % (0.0-4.0); MB 2.9 ng/ml
[2016-10-08 04:21] LABS: HEMATOCRIT 31.6 % (35.0-45.0); MEAN CELL VOLUME 96.8 FL (83-96); MEAN CORPUSCULAR HEMOGLOBIN 30.5 PG (28-34); MEAN CORPUSCULAR HGB CONC 31.5 g/dL (30-36); MEAN PLATELET VOLUME 8.4 FL (6.5-11.5); RED BLOOD COUNT 3.27 X10e (3.90-5.30); RED CELL DISTRIBUTION WIDTH 21.7 % (11.0-15.5); WHITE BLOOD COUNT 7.8 X10e3 (4.0-10.5)
[2016-10-08 04:56] LABS: BILIRUBIN,TOTAL 0.6 mg/dL (0.2-2.0); BUN/CREATININE RATIO 5.9; CALCIUM SERUM 8.2 mg/dL (8.4-10.2); CREATININE SERUM 4.4 mg/dL (0.6-1.4); GLOM FILT RATE Estimated 9.1 mL/min (>60); MAGNESIUM 1.9 mg/dL (1.6-3.0); PHOSPHOROUS 4.3 mg/dL (2.5-4.6); POTASSIUM 3.7 mmol/L (3.5-5.1); PROTEIN TOTAL SERUM 5.8 g/dL (6.0-8.3)
[2016-10-08 06:50] LABS: CK TOTAL 57 IU/L (26-140)
[2016-10-08 13:19] LABS: CK TOTAL 55 IU/L (26-140)
[2016-10-08 18:39] LABS: CK TOTAL 52 IU/L (26-140)
[2016-10-09 05:41] LABS: BASOPHIL# 0.1 X10e3 (0-0.3); BASOPHIL% 0.9 % (0-2.5); EOSINOPHIL# 0.2 X10e3 (0-0.7); EOSINOPHIL% 2.2 % (0.0-7.0); HEMATOCRIT 32.9 % (35.0-45.0); HEMOGLOBIN 10.4 gm/dL (12.0-16.0); LYMPHOCYTE# 2.3 X10e3 (1.0-3.5); LYMPHOCYTE% 21.8 % (17.0-45.0); MEAN CELL VOLUME 95.7 FL (83-96); MEAN CORPUSCULAR HEMOGLOBIN 30.1 PG (28-34); MEAN CORPUSCULAR HGB CONC 31.5 g/dL (30-36); MEAN PLATELET VOLUME 8.8 FL (6.5-11.5); MONOCYTE# 1.3 X10e3 (0-1.0); MONOCYTE% 12.3 % (3.0-12.0); NEUTROPHIL# 6.6 X10e3 (1.5-7.1); NEUTROPHIL% 62.8 % (40-75); PLATELET COUNT 176 X10e3 (140-420); RED BLOOD COUNT 3.44 X10e (3.90-5.30); RED CELL DISTRIBUTION WIDTH 21.6 % (11.0-15.5); WHITE BLOOD COUNT 10.6 X10e3 (4.0-10.5)
[2016-10-09 06:05] LABS: DIFF IND NO
[2016-10-09 06:15] LABS: BUN/CREATININE RATIO 7.66; CALCIUM SERUM 8.2 mg/dL (8.4-10.2); GLOM FILT RATE Estimated 6.3 mL/min (>60); POTASSIUM 4.4 mmol/L (3.5-5.1)
[2016-10-09 06:20] LABS: THYROID STIMULATING HORMONE 8.97 uIU/ml (0.34-5.60)
[2016-10-09 09:19] LABS: INR 2.2; PROTHROMBIN TIME (PATIENT) 24.3 SECONDS (9.6-11.5)
[2016-10-09 12:58] LABS: FREE T3 1.9 pg/mL (2.5-3.9)
[2016-10-09 12:59] LABS: FREE THYROXIN (T4) 0.69 ng/dL (0.58-1.64)
[2016-10-10 04:55] LABS: BASOPHIL# 0.1 X10e3 (0-0.3); BASOPHIL% 0.7 % (0-2.5); DIFF IND NO; EOSINOPHIL# 0.2 X10e3 (0-0.7); EOSINOPHIL% 1.4 % (0.0-7.0); HEMATOCRIT 30.2 % (35.0-45.0); HEMOGLOBIN 9.7 gm/dL (12.0-16.0); LYMPHOCYTE# 1.8 X10e3 (1.0-3.5); LYMPHOCYTE% 16.6 % (17.0-45.0); MEAN CELL VOLUME 96.3 FL (83-96); MEAN CORPUSCULAR HGB CONC 32.2 g/dL (30-36); MEAN PLATELET VOLUME 8.4 FL (6.5-11.5); MONOCYTE# 1.2 X10e3 (0-1.0); MONOCYTE% 11.2 % (3.0-12.0); NEUTROPHIL# 7.6 X10e3 (1.5-7.1); NEUTROPHIL% 70.1 % (40-75); PLATELET COUNT 150 X10e3 (140-420); RED BLOOD COUNT 3.13 X10e (3.90-5.30); RED CELL DISTRIBUTION WIDTH 20.7 % (11.0-15.5); WHITE BLOOD COUNT 10.8 X10e3 (4.0-10.5)
[2016-10-10 06:04] LABS: ALBUMIN SERUM 3.4 g/dL (3.5-5.0); BILIRUBIN,TOTAL 0.9 mg/dL (0.2-2.0); BUN/CREATININE RATIO 6.15; CALCIUM SERUM 8.3 mg/dL (8.4-10.2); CREATININE SERUM 3.9 mg/dL (0.6-1.4); GLOM FILT RATE Estimated 10.6 mL/min (>60); POTASSIUM 4.4 mmol/L (3.5-5.1); PROTEIN TOTAL SERUM 5.9 g/dL (6.0-8.3)
[2016-10-11 06:38] LABS: BUN/CREATININE RATIO 7.54; CALCIUM SERUM 8.5 mg/dL (8.4-10.2); CREATININE SERUM 5.7 mg/dL (0.6-1.4); GLOM FILT RATE Estimated 6.7 mL/min (>60); POTASSIUM 5.1 mmol/L (3.5-5.1)
[2016-10-12 04:41] LABS: BASOPHIL# 0.1 X10e3 (0-0.3); BASOPHIL% 1.3 % (0-2.5); EOSINOPHIL# 0.2 X10e3 (0-0.7); EOSINOPHIL% 2.3 % (0.0-7.0); HEMATOCRIT 31.5 % (35.0-45.0); HEMOGLOBIN 10.1 gm/dL (12.0-16.0); LYMPHOCYTE# 2.5 X10e3 (1.0-3.5); LYMPHOCYTE% 26.1 % (17.0-45.0); MEAN CELL VOLUME 96.7 FL (83-96); MEAN CORPUSCULAR HGB CONC 32.1 g/dL (30-36); MEAN PLATELET VOLUME 8.3 FL (6.5-11.5); MONOCYTE# 1.3 X10e3 (0-1.0); NEUTROPHIL# 5.4 X10e3 (1.5-7.1); NEUTROPHIL% 56.3 % (40-75); PLATELET COUNT 165 X10e3 (140-420); RED BLOOD COUNT 3.26 X10e (3.90-5.30); RED CELL DISTRIBUTION WIDTH 21.2 % (11.0-15.5); WHITE BLOOD COUNT 9.5 X10e3 (4.0-10.5)
[2016-10-12 04:45] LABS: DIFF IND NO
[2016-10-12 05:01] LABS: INR 1.8; PROTHROMBIN TIME (PATIENT) 19.2 SECONDS (9.6-11.5)
[2016-10-12 05:08] LABS: ALBUMIN SERUM 3.4 g/dL (3.5-5.0); BILIRUBIN,TOTAL 0.6 mg/dL (0.2-2.0); BUN/CREATININE RATIO 8.16; CALCIUM SERUM 8.4 mg/dL (8.4-10.2); CREATININE SERUM 7.1 mg/dL (0.6-1.4); GLOM FILT RATE Estimated 5.1 mL/min (>60); POTASSIUM 5.4 mmol/L (3.5-5.1); PROTEIN TOTAL SERUM 5.7 g/dL (6.0-8.3)
[2016-10-13 08:42] LABS: BASOPHIL# 0.1 X10e3 (0-0.3); BASOPHIL% 0.6 % (0-2.5); EOSINOPHIL# 0.2 X10e3 (0-0.7); EOSINOPHIL% 1.7 % (0.0-7.0); HEMATOCRIT 30.2 % (35.0-45.0); HEMOGLOBIN 9.7 gm/dL (12.0-16.0); LYMPHOCYTE# 1.7 X10e3 (1.0-3.5); LYMPHOCYTE% 18.7 % (17.0-45.0); MEAN CELL VOLUME 97.3 FL (83-96); MEAN CORPUSCULAR HEMOGLOBIN 31.4 PG (28-34); MEAN CORPUSCULAR HGB CONC 32.2 g/dL (30-36); MEAN PLATELET VOLUME 8.6 FL (6.5-11.5); MONOCYTE% 11.3 % (3.0-12.0); NEUTROPHIL% 67.7 % (40-75); PLATELET COUNT 155 X10e3 (140-420); RED BLOOD COUNT 3.11 X10e (3.90-5.30); RED CELL DISTRIBUTION WIDTH 21.6 % (11.0-15.5); WHITE BLOOD COUNT 8.9 X10e3 (4.0-10.5)
[2016-10-13 08:47] LABS: DIFF IND NO
[2016-10-13 08:58] LABS: INR 1.9; PROTHROMBIN TIME (PATIENT) 20.9 SECONDS (9.6-11.5)
[2016-10-13 10:03] LABS: CALCIUM SERUM 8.5 mg/dL (8.4-10.2); CREATININE SERUM 3.8 mg/dL (0.6-1.4); GLOM FILT RATE Estimated 10.9 mL/min (>60); POTASSIUM 4.8 mmol/L (3.5-5.1)
[2016-10-13] MEDS ORDERED: AMIODARONE PO (13:14)
[2016-10-13] MEDS ORDERED: COUMADIN3 MG PO (13:15)
[2016-10-13] MEDS ORDERED: COUMADIN6 MG PO (13:15)
[2016-10-13] MEDS ORDERED: DOCUSATE SODIU100 MG PO (13:17)
[2016-10-13] MEDS ORDERED: SYNTHROID25 MCG PO (13:21)
[2016-10-13] MEDS ORDERED: ALBUTEROL17 GM INH (16:45)
== END 2016-10-13 17:47 | disposition home health service (06) | DRG 917 ==
LOC: CED 14:36 → CEDOF 17:30 → CED 18:32 → CEDOF 18:32 → C3A PCU 19:43 → CICCU3 10-08 04:49 → C3A PCU 10-08 04:49 → CICCU3 10-08 08:24 → CICCU2 10-08 22:38 → C3A PCU 10-12 14:51
PROVIDERS: Emergency Medicine; Family Medicine; Internal Medicine; Internal Medicine Cardiovascular Disease; Internal Medicine Nephrology; Internal Medicine Pulmonary Disease
PROC: B24BYZZ Ultrasonography of Heart with Aorta using Other Contrast (ICD-10-PCS; 2016-10-08)
PROC: 5A1D60Z (ICD-10-PCS; principal; 2016-10-09)
DX: T46.5X1A Poisoning by other antihypertensive drugs, accidental (unintentional), initial encounter (principal); N18.6 End stage renal disease; I13.2 Hypertensive heart and chronic kidney disease with heart failure and with stage 5 chronic kidney disease, or end stage renal disease; E87.2 Acidosis; I95.2 Hypotension due to drugs; I27.2 Other secondary pulmonary hypertension; I50.22 Chronic systolic (congestive) heart failure; I25.5 Ischemic cardiomyopathy; I25.119 Atherosclerotic heart disease of native coronary artery with unspecified angina pectoris; D64.89 Other specified anemias; I48.0 Paroxysmal atrial fibrillation; E11.9 Type 2 diabetes mellitus without complications; E03.8 Other specified hypothyroidism; Z99.2 Dependence on renal dialysis; I34.0 Nonrheumatic mitral (valve) insufficiency; Z79.01 Long term (current) use of anticoagulants; E78.5 Hyperlipidemia, unspecified; Z88.0 Allergy status to penicillin; Z88.2 Allergy status to sulfonamides; Z91.041 Radiographic dye allergy status; Z87.891 Personal history of nicotine dependence; Z89.422 Acquired absence of other left toe(s); Z90.49 Acquired absence of other specified parts of digestive tract; Z98.49 Cataract extraction status, unspecified eye; T46.2X5A Adverse effect of other antidysrhythmic drugs, initial encounter; E66.9 Obesity, unspecified; Z68.33 Body mass index [BMI] 33.0-33.9, adult
CPT/HCPCS: 36600; 71010; 80048; 80053; 80076; 82308; 82533; 82550; 82553; 82803; 82947; 83036; 83605; 83735; 84100; 84439; 84443; 84481; 84484; 85025; 85027; 85610; 85730; 87040; 93005; 93306; 94760; 94761; 97110; 97112; 97116; 97162; 97166; 97530; 99291; G8978-GP; G8979-GP; G8987-GO; G8988-GO; G8989-GO; J0833; J1250; J1644; J2370; J3370; P9047

== ENCOUNTER → 2016-11-18 | Outpatient (CLI) | payer MEDICARE, OTHER ==
[~2016-11-18] MED LIST changes: +AMIODARONE PO; +COUMADIN PO; +COUMADIN6 MG PO; +LEVOTHYROXINE50 MC1 PO; +LUMIGAN2.5 ML; +SYNTHROID25 MCG PO; +TIMOPTIC 0.25% O5 M1 OU
[2016-11-18 11:19] LABS: ALBUMIN SERUM 4.5 g/dL (3.5-5.0); BILIRUBIN,TOTAL 0.7 mg/dL (0.2-2.0); BUN/CREATININE RATIO 5.45; CALCIUM SERUM 9.5 mg/dL (8.4-10.2); CREATININE SERUM 3.3 mg/dL (0.6-1.4); GLOM FILT RATE Estimated 12.9 mL/min (>60); POTASSIUM 4.5 mmol/L (3.5-5.1); PROTEIN TOTAL SERUM 8.3 g/dL (6.0-8.3)
== END | disposition home or self-care (01) ==
LOC: SLAB 10:39
PROVIDERS: Internal Medicine Endocrinology, Diabetes & Metabolism
DX: E11.65 Type 2 diabetes mellitus with hyperglycemia (principal)
CPT/HCPCS: 36415; 80053; 80061; 83036

== ENCOUNTER 2017-01-20 18:26 | Emergency (ER) | payer MEDICARE, OTHER ==
--- NOTE | ~2017-01-20 | CR211 ---
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 : 1940 SEX: F STUDY DATE/TIME: 01/20/2017 19:08 UNIT: SED ROOM: STUDY DESCRIPTION: CR Ribs Uni 2 View W PA Ch Rt Attending Physician: July Gill A.P.R.N. Ordering Physician: July Gill A.P.R.N. Primary Care Physician: Te Clemente D.O. MEDICAL IMAGING REPORT This report is preliminary unless electronic signature is present. EXAM Frontal view of the chest and right-sided rib views, 01/20/2017 COMPARISON Single view of chest dated 10/13/2016, two views of the chest dated 07/24/2016. HISTORY Patient fall and landed on the right side with right-sided rib pain and chest pain. FINDINGS Frontal view of the chest was obtained. Raised right hemidiaphragm is again noted. There is some prominence of the interstitial markings which could be related to the technique or minimal interstitial lung disease. There is a nondisplaced complete fracture of the anterolateral portion of the right sixth rib. Subtle fractures involving the right seventh rib and maybe even the right fifth rib cannot be excluded. There is some adjacent extrapulmonary opacity noted in this region which could represent mild hematoma or pleural fluid. No significant patchy dense consolidation or pneumothorax is seen. The heart is of normal size. Degenerative changes are noted in the spine with postoperative changes in the lumbar spine. Vascular stent is noted in the right axillary soft tissues. Dictated by... Peggy Real M.D. THIS IS AN ELECTRONICALLY VERIFIED REPORT Peggy Real M.D. at 01/21/2017 6:26 PM CPR/ljd [facility] A Service of [facility] RADIOLOGY TEXT RESULTS PATIENT: LUNA BRISENO LOCATION: [facility] : 40 UNIT #: [id number] AGE: [address]: July Gill APRN COMMERCIAL [employer]OW OFFICER SEX: F ORDER DR: TD: 01/21/2017 00:43 JOB #: [id number] MEDICAL IMAGING REPORT Page 1 of 1
[~2017-01-20 18:26] MED LIST changes: -LEVOTHYROXINE50 MC1 PO
[2017-01-20] MEDS ORDERED: LEVOTHYROXINE50 MC1 PO (18:46)
[2017-01-20 21:04] LABS: BASOPHIL# 0.1 X10e3 (0-0.3); BASOPHIL% 0.8 % (0-2.5); EOSINOPHIL# 0.1 X10e3 (0-0.7); EOSINOPHIL% 1.5 % (0.0-7.0); HEMATOCRIT 43.4 % (35.0-45.0); LYMPHOCYTE# 1.2 X10e3 (1.0-3.5); LYMPHOCYTE% 13.1 % (17.0-45.0); MEAN CELL VOLUME 100.1 FL (83-96); MEAN CORPUSCULAR HEMOGLOBIN 32.3 PG (28-34); MEAN CORPUSCULAR HGB CONC 32.3 g/dL (30-36); MONOCYTE# 1.1 X10e3 (0-1.0); MONOCYTE% 12.3 % (3.0-12.0); NEUTROPHIL# 6.4 X10e3 (1.5-7.1); NEUTROPHIL% 72.3 % (40-75); PLATELET COUNT 166 X10e3 (140-420); RED BLOOD COUNT 4.34 X10e (3.90-5.30); RED CELL DISTRIBUTION WIDTH 18.8 % (11.0-15.5); WHITE BLOOD COUNT 8.9 X10e3 (4.0-10.5)
[2017-01-20 21:15] LABS: INR 2.5; PROTHROMBIN TIME (PATIENT) 28.7 SECONDS (9.5-12.4)
[2017-01-20 21:20] LABS: DIFF IND NO
[2017-01-20 21:24] LABS: BILIRUBIN,TOTAL 0.8 mg/dL (0.2-2.0); BUN/CREATININE RATIO 5.17; CALCIUM SERUM 8.5 mg/dL (8.4-10.2); CREATININE SERUM 5.8 mg/dL (0.6-1.4); GLOM FILT RATE Estimated 6.5 mL/min (>60); PROTEIN TOTAL SERUM 7.4 g/dL (6.0-8.3)
[2017-01-20 21:27] LABS: POTASSIUM 5.7 mmol/L (3.5-5.1)
== END 2017-01-20 21:17 | disposition hospice, home (50) ==
LOC: SED 18:26
PROVIDERS: Nurse Practitioner
DX: S22.41XA Multiple fractures of ribs, right side, initial encounter for closed fracture (principal); I48.91 Unspecified atrial fibrillation; N19 Unspecified kidney failure; I50.9 Heart failure, unspecified; Z79.01 Long term (current) use of anticoagulants; Z79.899 Other long term (current) drug therapy; W01.198A Fall on same level from slipping, tripping and stumbling with subsequent striking against other object, initial encounter; Y92.009 Unspecified place in unspecified non-institutional (private) residence as the place of occurrence of the external cause
CPT/HCPCS: 36415; 71101; 80053; 85025; 85610; 99284

== ENCOUNTER → 2017-02-05 | Outpatient (CLI) | payer MEDICARE, OTHER ==
[~2017-02-05] MED LIST changes: +LEVOTHYROXINE50 MC1 PO
--- NOTE | ~2017-02-05 | US85 ---
[facility] A Service [facility] RADIOLOGY TEXT RESULTS PATIENT: LUNA BRISENO LOCATION: SNIV : 40 UNIT #: [id number] AGE: [address]: Denise Grant APRN SEX: F ORDER DR: [id number] [address] [address] [id number] O MR#: [id number] Acc #: [id number] NAME: LUNA BRISENO : 1940 SEX: F STUDY DATE/TIME: 02/05/2017 14:13 UNIT: SNIV ROOM: STUDY DESCRIPTION: [facility] or [facility] Attending Physician: Denise Grant A.P.R.N. Referring Physician: Denise Grant A.P.R.N. Ordering Physician: Denise Grant A.P.R.N. Primary Care Physician: Te Clemente D.O. MEDICAL IMAGING REPORT This report is preliminary unless electronic signature is present. EXAM Lower extremity venous ultrasound 02/05/2017 HISTORY Right knee pain after fall for 3 weeks. Currently taking Warfarin. TECHNIQUE Venous ultrasound examination of the right lower extremity was performed using grayscale, spectral Doppler and color flow Doppler imaging. FINDINGS The examination is negative. There is no evidence of right lower extremity deep venous thrombus from the groin to the lower calf. Visualized greater saphenous vein is also patent. IMPRESSION Negative examination. No evidence of right lower extremity deep venous thrombosis. NOTE The tube worker indicates excessive bruising and swelling in the right lower extremity. Claim Representative indicates the study was technically difficult. Dictated by... Artemio Joseph M.D. THIS IS AN ELECTRONICALLY VERIFIED REPORT Artemio Joseph M.D. at 02/06/2017 9:25 PM [facility] A Service [facility] RADIOLOGY TEXT RESULTS PATIENT: LUNA BRISENO LOCATION: [facility] : 40 UNIT #: [id number] AGE: [address]: Denise Grant APRN SEX: F ORDER DR: JESICA/joleen TD: 02/05/2017 19:12 JOB #: [id number] MEDICAL IMAGING REPORT Page 1 of 1
== END | disposition home or self-care (01) ==
LOC: SNIV 02-04 11:00
DX: M25.461 Effusion, right knee (principal); M79.661 Pain in right lower leg; M79.89 Other specified soft tissue disorders; S80.11XA Contusion of right lower leg, initial encounter
CPT/HCPCS: 93971